=== PATIENT | male | born 1935 | race Caucasian/White ===

== ENCOUNTER 2017-03-01 10:05 | Inpatient (IN) | payer MEDICARE, OTHER ==
[~2017-03-01] VITALS: Ht 180.3 cm; Wt 100.5 kg
[~2017-03-01 10:05] MED LIST: BUME2TAB18 PO; CHOL200024 PO; CYAN10009 PO; ESCI10TA44 PO; GABA800T75 PO; LANS30CA44 PO; METO50TA5 PO; POTA-81 PO; TAMS0.4C20 PO
--- OUTSIDE RECORDS SUMMARY | 2017-03-01 10:09 | XMS REPORT | Continuity of Care Document ---
Author Author [facility] Organization [facility] Address Unknown Phone Unavailable Allergies Active Description Code Type Severity Reaction Onset Reported/Identified Relationship to Patient Clinical Status Yes No Known Medication Allergies NKMA N/A N/A 05/19/2014 Medications Problems Procedures Results Encounters ACCT No. Visit Date/Time Discharge Status Pt. Type Provider Facility Loc./Unit Complaint [id number] 11/18/2016 13:34:00 2016 23:59:00 DIS Outpatient Jayesh Gasca V [facility] New FM 6 month CRMMP [id number] 09/06/2016 14:36:00 2015 23:59:00 DIS Outpatient Jayesh Gasca V [facility] New FM 10 day follow up [id number] 08/25/2016 14:09:00 2015 23:59:00 DIS Outpatient Jayesh Gasca V [facility] New FM TCPA sov [id number] 05/17/2016 13:09:00 2015 23:59:00 DIS Outpatient Jayesh Gasca V [facility] New FM 6 month CDM HTN [id number] 05/18/2015 13:33:00 2014 23:59:00 DIS Outpatient Jayesh Gasca V [facility] New FM 6MTH RCK CRMMP [id number] 11/17/2014 13:12:00 2014 23:59:00 DIS Outpatient Jayesh Gasca V [facility] New FM 6mth f/u [id number] 09/29/2014 13:38:00 2013 23:59:00 DIS Outpatient Manjinder Sherwood [facility] New FM LFT FOOT TOENAILPOSSIBLE INFECTION [id number] 11/17/2015 12:34:00 ACT Outpatient Jayesh Gasca V [facility] New FM 6MTH CDM HTN
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
--- OUTSIDE RECORDS SUMMARY | 2017-03-01 10:10 | XMS REPORT | Continuity of Care Document ---
Author Author [facility] Organization [facility] Address Unknown Phone Unavailable Support Name Relationship Address Phone DAMON OLIVER MD Caregiver [address] [place] [address] [place] [address] Unavailable DAMON OLIVER MD Caregiver [address] [place] [address] [place] [address] Unavailable KATHARINA GASCA MD Caregiver [address] [place] [address] [place] [address] Unavailable IAM HARRIS Next Of Kin [address] [phone] Insurance Providers Guarantor Getachew Harris Address [address] [place] [address] Email [email or web address] Payer Medicare Policy Number [id number] Subscriber's Name Getachew Harris Relationship 18 Self Effective Date [facility] Policy Number [id number] Subscriber's Name Getachew Harris Relationship 18 Self Group Number [id number] Advance Directives Directive Response Recorded Date/Time Ordered Resuscitation Status Full Code 08/17/16 12:12pm Resuscitation Documents on File No 08/17/16 12:12pm DPOA for Healthcare Only No 08/17/16 12:12pm Living Will No 08/17/16 12:12pm Problems Active Problems Medical Problem Onset Date Status Dehydration Unknown Resolved GERD (gastroesophageal reflux disease) Unknown Chronic Glaucoma Unknown Chronic HTN (hypertension) Unknown Chronic Hematuria Unknown Acute History of seizure Unknown Resolved Hypokalemia Unknown Resolved Pacemaker Unknown Chronic Peripheral edema Unknown Chronic Weakness Unknown Acute Surgical Problem Onset Date Status Hx of splenectomy Unknown Resolved Past Problems Medical Problem Onset Date Dehydration Unknown Dehydration Unknown Hematuria Unknown Hypokalemia Unknown Hypokalemia Unknown Weakness Unknown Weakness Unknown Medications Current Home Medications Medication Dose Units Route Directions Days Qty Instructions Start Date Bumetanide 2 Mg Tablet 2 Mg Oral Am 08/15/16 Cholecalciferol (Vitamin D3) (Vitamin D) 2,000 Unit Tablet 2,000 Unit Oral Daily 08/15/16 Cyanocobalamin (Vitamin B-12) (Vitamin B-12) 1,000 Mcg Tablet 1,000 Mg Oral Daily 08/15/16 Escitalopram Oxalate (Lexapro) 10 Mg Tablet 10 Mg Oral Daily 10/11 Gabapentin (Neurontin) 800 Mg Tablet 800 Mg Oral Three Times A Day 11/10/12 Lansoprazole (Prevacid) 30 Mg Capsule.dr 30 Mg Oral Daily Metoprolol Tartrate 50 Mg Tablet 50 Mg Oral Daily 08/15/16 Potassium Chloride 20 Meq Tablet.er 20 Meq Oral Twice Daily With Meals 08/15/16 Tamsulosin Hcl (Flomax) 0.4 Mg Cap.sr.24h 0.4 Mg Oral Daily 11/10 Past Home Medications Medication Directions Ordered Status Bumetanide 2 Mg Tablet, 1 Mg Oral Bedtime 08/15/16 Discontinued Metolazone 5 Mg Tablet, 5 Mg Oral Every Other Day 08/15/16 Discontinued Social History Social History Problem Response Recorded Date/Time Onset Date Status Reason for Hospitalization Hypokalemia 08/19/2016 5:40pm Not Applicable Not Applicable Hx Substance Use No 08/16/2016 11:29am Not Applicable Not Applicable Hx Alcohol Use No 08/16/2016 11:29am Not Applicable Not Applicable Has the pt used tobacco in the last 12 months No 08/17/2016 12:13pm Not Applicable Not Applicable Query Response Start Date Stop Date Smoking Status Never smoker Hospital Discharge Instructions Instructions: Care Instructions: Reason for Hospitalization: Hypokalemia I was in the hospital because (patient own words): I don't have any strength Discharge Diet: Low sodium Discharge Activity: As tolerated Follow Up Appointments: [facility] on 08/23/[address] Gasca/Alex. Dx: Hypokalemia, medication use. Dr Gasca in 1 week on August 25 at 2:20pm Pending Lab / Results: No Pending Lab Patient Instructions: Elevate legs as much as possible to minimize swelling. Avoid sodium (salt) to minimize swelling. Wound/Incision Care: n/a Pain Management/Treatment: n/a Expected Signs/Symptoms: Improvement of strenght Notify Physician If: Increased weakness. Fever/chills During Business Hours:: Please call the physician's office at After Business Hours:: Please call [phone] and have the continuous yarn dyeing machine operator page the physician. Condition at time of discharge: Good Plan of Care Discharge Date 08/19/16 7:26pm Disposition 01 DISCHARGED HOME, SELF-CARE Instructions/Education Provided DI for Hypokalemia Prescriptions See Medication Section Care Plan and Goals See Discharge Instructions Section Functional Status Query Response Date Recorded Mobility Status Transfer w/assist August 19, 2016 5:40pm Assistive Devices Motorized Scooter August 19, 2016 5:40pm Activity Limitations Weakness August 19, 2016 5:40pm Feeding Ability Independent August 19, 2016 5:40pm Toileting Ability Dependent August 19, 2016 5:40pm Grooming Ability Independent August 19, 2016 5:40pm Dressing Ability Independent August 19, 2016 5:40pm Driving Ability Dependent August 19, 2016 5:40pm Housework Ability Dependent August 19, 2016 5:40pm Meal Preparation Ability Dependent August 19, 2016 5:40pm Stair Climbing Ability Dependent August 19, 2016 5:40pm Ability to complete ADL's impeded by Impaired Mobility No change August 19, 2016 5:40pm Cognitive/Perceptual Impairments Impaired vision August 19, 2016 5:40pm Visual Assistive Devices Glasses August 17, 2016 2:40pm Preferred Method of Learning Reading Listening August 17, 2016 2:40pm Allergies, Adverse Reactions, Alerts No known allergies. Immunizations Immunization Event Date Type Not Given Reason Dose Number Lot Number [employer] Operator VIS Given Influenza, high dose seasonal 08/18/16 Administered 1 [id number] [employer]i Pasteur 06/05/15 Query Response on File Recorded Date/Time Hx Influenza Vaccination Y 08/1308/17/16 12:13pm Hx Pneumococcal Vaccination Y 08/1308/17/16 12:13pm Hx Influenza Vaccination Y 08/1308/17/16 12:13pm Influenza Vaccine Hx 08/18/2016 08/18/16 11:17am Vital Signs Acute Vital Signs Vital Response Date/Time Temperature (Fahrenheit) 96.7 deg F (96.8 - 99.1) 08/19/2016 4:34pm Temperature (Calculated Celsius) 35.84374 degrees C (36.0 - 37.3) 08/19/2016 4:34pm Pulse Rate (adult) 79 bpm (60 - 100) 08/19/2016 4:34pm Respiratory Rate 16 breaths/min (10 - 20) 08/19/2016 4:34pm O2 Sat by Pulse Oximetry 93 % (90 - 100) 08/19/2016 4:34pm Oxygen Delivery Method Room Air 08/19/2016 4:34pm Blood Pressure 104/64 mm Hg 08/19/2016 4:34pm Blood Pressure Source Automatic Cuff 08/19/2016 4:34pm Height (Feet) 6 feet 08/19/2016 3:37pm Height (Inches) 0.00 inches 08/19/2016 3:37pm Weight (Kilograms) 95.800 kg 08/19/2016 8:01am Body Mass Index (BMI) 27.2 08/17/2016 11:14am Results Laboratory Results Test Name Result Units Flags Reference Collection Date/Time Result Date/ Time Comments Troponin I 0.016 ng/ml 0-0.12 08/15/2016 5:34pm 08/15/2016 6:05pm Troponin values with a difference of 55% increase from orginal troponin value represent a true biological DELTA value. (%increase Calc=Orginal Troponin value, divided by subsequent Troponin value, multiplied by 100) BK-Wwi-Z-Type Natriuretic Peptide 203 PG/ML H 0-175 08/15/2016 5:34pm 6:10pm Rule in cut points: <50 years old=450; 50-75 years old=900; >75 years old=1800; When utilizing ProBNP rule-in cut points, adjustment for impaired renal function is typically not required. White Blood Count 8.9 T/MM3 4.5-11.0 08/19/2016 4:37am 08/19/2016 5: 11am Red Blood Count 3.90 M/MM3 L 4.50-5.90 08/19/2016 4:37am 08/19/2016 5: 11am Hemoglobin 12.1 GM/DL D L 13.5-17.5 08/19/2016 4:37am 08/19/2016 5:11am Hematocrit 37.1 % D L 41-53 08/19/2016 4:37am 08/19/2016 5:11am Mean Corpuscular Volume 95.1 UM3 80-100 08/19/2016 4:37am 08/19/2016 5: 11am Mean Corpuscular Hemoglobin 31.0 UUG 26-34 08/19/2016 4:37am 2015 5:11am Mean Corpuscular Hemoglobin Concent 32.6 GM/DL 31-37 08/19/2016 4:37am 08/19/2016 5:11am RDW Standard Deviation 48.1 FL 36.9-50.2 08/19/2016 4:37am 08/19/2016 5 :11am Platelet Count 205 T/MM3 130-400 08/19/2016 4:37am 08/19/2016 5:11am Mean Platelet Volume 11.1 UM3 9.4-12.4 08/19/2016 4:37am 08/19/2016 5: 11am Neutrophils (%) (Auto) 57.2 % 33-66 08/19/2016 4:37am 08/19/2016 5: 11am Lymphocytes (%) (Auto) 27.6 % 23-45 08/19/2016 4:37am 08/19/2016 5: 11am Monocytes (%) (Auto) 11.5 % H 0-9.0 08/19/2016 4:37am 08/19/2016 5:11am Eosinophils (%) (Auto) 3.0 % 0-4 08/19/2016 4:37am 08/19/2016 5:11am Basophils (%) (Auto) 0.5 % 0-2 08/19/2016 4:37am 08/19/2016 5:11am Immature Granulocyte % (Auto) 0.2 % 0.0-0.5 08/19/2016 4:37am 2015 5:11am Absolute Neutrophils (auto) 5.1 T/MM3 1.8-7.7 08/19/2016 4:37am 2015 5:11am Absolute Lymphocytes (auto) 2.5 T/MM3 1-4.8 08/19/2016 4:37am 2015 5:11am Absolute Monocytes (auto) 1.0 T/MM3 H 0-0.8 08/19/2016 4:37am 2015 5:11am Absolute Eosinophils (auto) 0.3 T/MM3 0-0.5 08/19/2016 4:37am 2015 5:11am Absolute Basophils (auto) 0.0 T/MM3 0-0.2 08/19/2016 4:37am 08/19/2016 5:11am Absolute Immature Granulocyte (auto 0.02 T/MM3 0.00-0.03 08/19/2016 4: 37am 08/19/2016 5:11am Icterus Index < 2 0-7 08/19/2016 4:37am 08/19/2016 5:16am Chemistry Specimen Hemolysis < 15 0-25 08/19/2016 4:37am 08/19/2016 5 :16am 0-25: Specimen Exhibited No Hemolysis. Turbidity < 20 0-20 08/19/2016 4:37am 08/19/2016 5:16am Sodium Level 142 MEQ/L 134-144 08/19/2016 4:37am 08/19/2016 5:16am Potassium Level 4.0 MEQ/L D 3.6-5 08/19/2016 4:37am 08/19/2016 5:19am Chloride Level 105 MEQ/L D 98-107 08/19/2016 4:37am 08/19/2016 5:19am Carbon Dioxide Level 30 MEQ/L 22-30 08/19/2016 4:37am 08/19/2016 5: 16am Anion Gap 7 MEQ/L 5-15 08/19/2016 4:37am 08/19/2016 5:16am Blood Urea Nitrogen 24.0 MG/DL H 9-20 08/19/2016 4:37am 08/19/2016 5: 16am Creatinine 1.0 MG/DL D 0.8-1.5 08/19/2016 4:37am 08/19/2016 5:19am BUN/Creatinine Ratio 24 RATIO 6-26 08/19/2016 4:37am 08/19/2016 5:16am Glomerular Filtration Rate Calc 72 08/19/2016 4:37am 08/19/2016 5: 16am Glucose Level 109 MG/DL 75-110 08/19/2016 4:37am 08/19/2016 5:16am Calculated Osmolality 278 MOSM/KG 261-280 08/19/2016 4:37am 08/19/2016 5:16am Calcium Level 9.0 MG/DL 8.4-10.2 08/19/2016 4:37am 08/19/2016 5:16am Total Bilirubin 1.30 MG/DL 0.20-1.30 08/17/2016 12:44pm 08/17/2016 1: 15pm Alkaline Phosphatase 112 U/L 38-126 08/17/2016 12:44pm 08/17/2016 1: 15pm Total Protein 7.5 G/DL 6.3-8.2 08/17/2016 12:44pm 08/17/2016 1:15pm Albumin 3.9 G/DL 3.5-5.0 08/17/2016 12:44pm 08/17/2016 1:15pm Globulin 3.6 G/DL 2.4-3.6 08/17/2016 12:44pm 08/17/2016 1:15pm Albumin/Globulin Ratio 1.1 RATIO 1.1-2.2 08/17/2016 12:44pm 08/17/2016 1:15pm Aspartate Amino Transf (AST/SGOT) 31 U/L 17-59 08/17/2016 12:44pm 08/17 1:15pm Alanine Aminotransferase (ALT/SGPT) 27 U/L 21-72 08/17/2016 12:44pm 1:15pm Magnesium Level 2.0 MG/DL 1.6-2.3 08/19/2016 4:37am 08/19/2016 5:16am Urine Collection Type VOIDED-NOT CC-MIDSTR 08/17/2016 1:28pm 2015 1:40pm Urine Color YELLOW YELLOW 08/17/2016 1:28pm 08/17/2016 1:40pm Urine Turbidity CLEAR CLEAR 08/17/2016 1:28pm 08/17/2016 1:40pm Urine Specific [place] 1.010 L 1.015-1.025 08/17/2016 1:28pm 2015 1:40pm Urine pH 6.0 5.0-8.0 08/17/2016 1:28pm 08/17/2016 1:40pm Urine Leukocyte Esterase NEGATIVE NEGATIVE 08/17/2016 1:28pm 2015 1:40pm Urine Nitrite NEGATIVE NEGATIVE 08/17/2016 1:28pm 08/17/2016 1:40pm Urine Protein NEGATIVE NEGATIVE 08/17/2016 1:28pm 08/17/2016 1:40pm Urine Glucose (UA) NEGATIVE NEGATIVE 08/17/2016 1:28pm 08/17/2016 1: 40pm Urine Ketones NEGATIVE NEGATIVE 08/17/2016 1:28pm 08/17/2016 1:40pm Urine Urobilinogen 0.2 EU/DL NORMAL 08/17/2016 1:28pm 08/17/2016 1: 40pm Urine Bilirubin NEGATIVE NEGATIVE 08/17/2016 1:28pm 08/17/2016 1: 40pm Urine Blood 3+ A NEGATIVE 08/17/2016 1:28pm 08/17/2016 1:40pm Urine WBC 0-1 /HPF 0-5 08/17/2016 1:28pm 08/17/2016 1:53pm Urine RBC 20-30 /HPF H 0-3 08/17/2016 1:28pm 08/17/2016 1:53pm Urine Squamous Epithelial Cells 0-5 08/17/2016 1:28pm 08/17/2016 1: 53pm Urine Bacteria 1+ H NEGATIVE 08/17/2016 1:28pm 08/17/2016 1:53pm Urine Hyaline Casts 1-3 /LPF 08/17/2016 1:28pm 08/17/2016 1:53pm Urine Culture Indicated CULT NOT INDICATED 08/17/2016 1:28pm 2015 1:53pm Procedures Procedure Status Date Provider(s) PLACE NEEDLE IN VEIN Completed 08/15/16 CHEST X-RAY 1 VIEW FRONTAL Completed 08/15/16 COMPREHEN METABOLIC PANEL Completed 08/15/16 URINALYSIS AUTO W/SCOPE Completed 08/15/16 ASSAY OF MAGNESIUM Completed 08/15/16 ASSAY OF NATRIURETIC PEPTIDE Completed 08/15/16 ASSAY OF TROPONIN QUANT Completed 08/15/16 COMPLETE CBC W/AUTO DIFF WBC Completed 08/15/16 ELECTROCARDIOGRAM TRACING Completed 08/15/16 THER/PROPH/DIAG IV INF INIT Completed 08/15/16 EMERGENCY DEPT VISIT Completed 08/15/16 [id number] ITEM OR SERVICE Completed 08/15/16 [id number] ITEM OR SERVICE Completed 08/15/16 [id number]"INJECTION, POTASSIUM CHLORIDE, PER 2 MEQ" Completed 08/15/16 [id number]"INFUSION, NORMAL SALINE SOLUTION , 1000 CC" Completed 08/15/16 [id number]"INFUSION, NORMAL SALINE SOLUTION , 250 CC" Completed 08/15/16 COMPREHEN METABOLIC PANEL Completed 08/16/16 ASSAY OF MAGNESIUM Completed 08/16/16 COMPLETE CBC W/AUTO DIFF WBC Completed 08/16/16 HYDRATION IV INFUSION INIT Completed 08/16/16 EMERGENCY DEPT VISIT Completed 08/16/16 [id number]"INFUSION, NORMAL SALINE SOLUTION , 1000 CC" Completed 08/16/16 Encounters Encounter Location Arrival/Admit Date Discharge/Depart Date Attending Provider Discharged Inpatient [facility] 08/17/16 3:37pm 08/19/16 7:26pm DAMON OLIVER MD Departed Emergency Room [facility] 08/16/16 10:45am 08/16/16 2: 42pm LEXA OLIVERA MD Departed Emergency Room [facility] 08/15/16 5:05pm 08/15/16 8: 55pm LAURA BEDOYA DO
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
--- NOTE | 2017-03-01 10:32 | NUR ---
LAB LAB AT BEDSIDE FOR BLOOD DRAW
--- NOTE | 2017-03-01 10:37 | NUR ---
PROVIDER DR OLIVERA AT BEDSIDE FOR H&P
--- OUTSIDE RECORDS SUMMARY | 2017-03-01 10:38 | XMS REPORT | Continuity of Care Document ---
Author Author [facility] Organization [facility] Address Unknown Phone Unavailable Allergies Active Description Code Type Severity Reaction Onset Reported/Identified Relationship to Patient Clinical Status Yes No Known Medication Allergies NKMA N/A N/A 05/19/2014 Medications Problems Procedures Results Encounters ACCT No. Visit Date/Time Discharge Status Pt. Type Provider Facility Loc./Unit Complaint [id number] 11/18/2016 13:34:00 2016 23:59:00 DIS Outpatient Jyaesh Gasca V [facility] 6 month CRMMP [id number] 09/06/2016 14:36:00 2015 23:59:00 DIS Outpatient Jayesh Gasca V [facility] 10 day follow up [id number] 08/25/2016 14:09:00 2015 23:59:00 DIS Outpatient Jayesh Gasca V [facility] TCPA sov [id number] 05/17/2016 13:09:00 2015 23:59:00 DIS Outpatient Jayesh Gasca V [facility] 6 month CDM HTN [id number] 05/18/2015 13:33:00 2014 23:59:00 DIS Outpatient Jayesh Gasca V [facility] 6MTH RCK CRMMP [id number] 11/17/2014 13:12:00 2014 23:59:00 DIS Outpatient Jayesh Gasca V [facility] 6mth f/u [id number] 09/29/2014 13:38:00 2013 23:59:00 DIS Outpatient Manjinder Sherwood [facility] LFT FOOT TOENAILPOSSIBLE INFECTION [id number] 11/17/2015 12:34:00 ACT Outpatient Jayesh Gasca V [facility] 6MTH CDM HTN
[2017-03-01] MEDS ORDERED: POTA-81 PO (10:44)
[2017-03-01] MEDS ORDERED: BUME2TAB18 PO (10:44)
[2017-03-01] MEDS ORDERED: CEFEPIME 1 G in NORMAL SALINE 100 ML IV ONE (10:45)
[2017-03-01 10:51] LABS: HCT - HEMATOCRIT 38.4 % (41-53); HGB - HEMOGLOBIN 12.7 GM/DL (13.5-17.5); MEAN CORPUSCULAR HGB 32.2 UUG (26-34); MEAN CORPUSCULAR HGB CONC(MCHC 33.1 GM/DL (31-37); MEAN CORPUSCULAR VOLUME 97.5 UM3 (80-100); MEAN PLATELET VOLUME 10.8 UM3 (9.4-12.4); RED BLOOD COUNT 3.94 M/MM3 (4.50-5.90); WBC - WHITE BLOOD COUNT 22.9 T/MM3 (4.5-11.0)
[2017-03-01 10:59] LABS: LACTATE - LACTIC ACID 1.7 MMOL/L (0.6-2.2)
[2017-03-01] MEDS ORDERED: NORMAL SALINE 1,000 ML IV ONE (11:00)
[2017-03-01 11:01] LABS: ALBUMIN 3.3 G/DL (3.5-5.0); ALBUMIN/GLOBULIN RATIO 1.1 RATIO (1.1-2.2); ALKALINE PHOSPHATASE 93 U/L (38-126); ALT (SGPT) 43 U/L (21-72); ANION GAP 11 MEQ/L (5-15); AST (SGOT) 33 U/L (17-59); BUN/CREATININE RATIO 17 RATIO (6-26); CALCIUM 8.9 MG/DL (8.4-10.2); CHLORIDE 102 MEQ/L (98-107); CO2 - CARBON DIOXIDE 28 MEQ/L (22-30); CREATININE 1.2 MG/DL (0.8-1.5); GLOMERULAR FILTRATION RATE 58; GLUCOSE 170 MG/DL (75-110); MAGNESIUM 1.9 MG/DL (1.6-2.3); POTASSIUM 3.6 MEQ/L (3.6-5); SODIUM 141 MEQ/L (134-144); TOTAL PROTEIN 6.4 G/DL (6.3-8.2)
--- NOTE | 2017-03-01 11:03 | NUR ---
XRAY RADIOLOGY AT BEDSIDE FOR PORTABLE CXR.
[2017-03-01 11:10] LABS: BAND NEUTROPHILS # 0.5 T/MM3; LYMPHOCYTES # (MANUAL) 0.5 T/MM3 (1-4.8); MONOCYTES # (MANUAL) 0.5 T/MM3 (0-0.8); NEUTROPHILS #(MANUAL)-ABSOLUTE 21.5 T/MM3 (1.8-7.7); TOTAL CELLS COUNTED 100 %
[2017-03-01 11:11] LABS: ACANTHOCYTES 1+; POIKILOCYTOSIS 1+
--- NOTE | 2017-03-01 11:28 | NUR ---
UPDATE PATIENT LYING IN BED RESTING. URINAL PROVIDED TO COLLECT URINE SAMPLE.
--- NOTE | 2017-03-01 11:35 | DI ---
Indication: ITS.REASON: general weakness, cardiac/sepsis eval PROCEDURE: CHEST 1 VIEW: Encounter: Initial Comparison: August 15, 2016 Findings: The lungs are stable in appearance without new focal airspace consolidation. There is no pleural effusion or pneumothorax. The heart size, pulmonary vascularity and mediastinal contours are unchanged. Left pacemaker. IMPRESSION: Stable appearance of the chest without acute cardiopulmonary disease. .
[2017-03-01 11:45] LABS: BLOOD, URINE 2+ (NEGATIVE); COLOR,URINE AMBER (YELLOW); LEUKOCYTE ESTERASE ,URINE NEGATIVE (NEGATIVE); NITRITE,URINE NEGATIVE (NEGATIVE)
[2017-03-01 11:54] LABS: BACTERIA,URINE 2+ (NEGATIVE); MUCUS,URINE PRESENT; SQUAMOUS EPITHELIAL CELL,UR 0-5
--- NOTE | 2017-03-01 12:12 | NUR ---
REPORT REPORT GIVEN TO TRINI ALLAN ON MEDICAL UNIT.
--- OUTSIDE RECORDS SUMMARY | 2017-03-01 12:16 | XMS REPORT | Continuity of Care Document ---
Author Author [facility] Organization [facility] Address Unknown Phone Unavailable Allergies Active Description Code Type Severity Reaction Onset Reported/Identified Relationship to Patient Clinical Status Yes No Known Medication Allergies NKMA N/A N/A 05/19/2014 Medications Problems Procedures Results Encounters ACCT No. Visit Date/Time Discharge Status Pt. Type Provider Facility Loc./Unit Complaint [id number] 11/18/2016 13:34:00 2016 23:59:00 DIS Outpatient Jayesh Gasca V [facility] New FM 6 month CRMMP [id number] 09/06/2016 14:36:00 2015 23:59:00 DIS Outpatient Jayesh Gasca V [facility] 10 day follow up [id number] 08/25/2016 14:09:00 2015 23:59:00 DIS Outpatient Jayesh Gasca V [facility] New FM TCPA sov [id number] 05/17/2016 13:09:00 2015 23:59:00 DIS Outpatient Jayesh Gasca V [facility] New FM 6 month CDM HTN [id number] 05/18/2015 13:33:00 2014 23:59:00 DIS Outpatient Jayesh Gasca V [facility] New FM 6MTH RCK CRMMP [id number] 11/17/2014 13:12:00 2014 23:59:00 DIS Outpatient Jayesh Gasca V [facility] FM 6mth f/u [id number] 09/29/2014 13:38:00 2013 23:59:00 DIS Outpatient Manjinder Sherwood [facility] LFT FOOT TOENAILPOSSIBLE INFECTION [id number] 11/17/2015 12:34:00 ACT Outpatient Jayesh Gasca V [facility] 6MTH CDM HTN
--- NOTE | 2017-03-01 12:20 | NUR ---
Admission to medical unit. Patient arrived via cart from ER. VSS. RA. Reporting pain 3/10 in left leg. present. A&O x 3.
--- NOTE | 2017-03-01 12:20 | NUR ---
ADMIT PATIENT TAKEN TO ROOM 137 BY CART, STABLE. BELONGINGS WITH PATIENT. ACCOMPANIED BY .
[2017-03-01 12:26] VITALS: Ht 180.3 cm; Wt 100.5 kg
[2017-03-01 12:34] VITALS: BP 126/66; PULSE 85; RESP 18; TEMP 98.2; O2SAT 93
[2017-03-01 12:38] VITALS: PULSE 85; RESP 18
[2017-03-01] MEDS ORDERED: LATA2.5D7 BOTH EYES (12:52)
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
[2017-03-01] MEDS: NS KCL 20 MEQ 1,000 ML IV SCH (13:14)
[2017-03-01 13:20] VITALS: PULSE 85; RESP 18; O2SAT 93
[2017-03-01] MEDS: ERTAPENEM 1 G in NORMAL SALINE 100 ML IV SCH (13:25)
[2017-03-01] MEDS: HYDROCODONE/APAP 5 mg/325 mg TABLET PO PRN ×2 (13:34→20:14)
[2017-03-01] MEDS: GABAPENTIN 800 MG TABLET PO SCH ×2 (15:08→20:14)
[2017-03-01 15:11] VITALS: BP 105/58; PULSE 87; RESP 18; TEMP 98.1; O2SAT 93
--- NOTE | 2017-03-01 18:27 | NUR ---
Shift summary. VSS. RA. at bedside. Patient cooperative, good sense of humor and likes to joke around. Left forearm IV with NS 0.9% KCl 20 MEQ running at 75 mL/hr, complete after this bag. A&O x 3, although does ramble on in speech at times. Patient nonambulatory at this time. Transferred patient to chair for meal with gait belt and assistance x 2, and patient needed total assist. Patient stated hasn't walked since 2007, and reports patient 'can't walk,' just pivots and transfers. Uses urinal at bedside. Patient stated hasn't had BM for several days. Hx of CHF. Has pacemaker. Given one dose of [place] for pain.
--- NOTE | 2017-03-01 18:56 | NUR ---
Charting reviewed This RN reviewed student Monet Grijalva's charting for 03/01.
[2017-03-01 20:06] VITALS: PULSE 82; RESP 18
[2017-03-01 22:19] VITALS: O2SAT 95
[2017-03-02 00:02] VITALS: BP 114/65; PULSE 86; RESP 18; TEMP 97.8; O2SAT 94
[2017-03-02 01:00] VITALS: O2SAT 92
[2017-03-02] MEDS: HYDROCODONE/APAP 5 mg/325 mg TABLET PO PRN ×2 (02:05→08:44)
[2017-03-02] MEDS: NS KCL 20 MEQ 1,000 ML IV SCH ×2 (02:20→14:50)
[2017-03-02 03:00] VITALS: O2SAT 90
[2017-03-02 05:14] LABS: HCT - HEMATOCRIT 35.1 % (41-53); HGB - HEMOGLOBIN 11.5 GM/DL (13.5-17.5); MEAN CORPUSCULAR HGB CONC(MCHC 32.8 GM/DL (31-37); MEAN CORPUSCULAR VOLUME 97.8 UM3 (80-100); MEAN PLATELET VOLUME 11.6 UM3 (9.4-12.4); RED BLOOD COUNT 3.59 M/MM3 (4.50-5.90); WBC - WHITE BLOOD COUNT 17.5 T/MM3 (4.5-11.0)
[2017-03-02 05:20] LABS: ANION GAP 8 MEQ/L (5-15); BUN/CREATININE RATIO 18 RATIO (6-26); CALCIUM 8.8 MG/DL (8.4-10.2); CHLORIDE 107 MEQ/L (98-107); CO2 - CARBON DIOXIDE 27 MEQ/L (22-30); GLOMERULAR FILTRATION RATE 72; GLUCOSE 95 MG/DL (75-110); POTASSIUM 3.8 MEQ/L (3.6-5); SODIUM 142 MEQ/L (134-144)
--- NOTE | 2017-03-02 05:33 | NUR ---
Status Pt A/O x3, norco x2 tonight for pain in L LE, three person assist to bed from chair, pt has shuffling gait and weakness. BS hypoactive, states last BM 3-4 days ago. IV to L FA, locked after 1L IVF completed. L LE cellulitis, B LE 1+ edema. Slept off and on, uses call light for assistance.
[2017-03-02 06:49] LABS: LYMPHOCYTES # (MANUAL) 1.8 T/MM3 (1-4.8); MONOCYTES # (MANUAL) 2.1 T/MM3 (0-0.8); NEUTROPHILS #(MANUAL)-ABSOLUTE 13.7 T/MM3 (1.8-7.7); TOTAL CELLS COUNTED 100 %
[2017-03-02 08:00] VITALS: BP 126/67; PULSE 73; RESP 18; TEMP 97.8; O2SAT 98
[2017-03-02] MEDS: GABAPENTIN 800 MG TABLET PO SCH ×3 (08:44→20:53)
[2017-03-02] MEDS: ESCITALOPRAM 10 MG TABLET PO SCH (08:44)
[2017-03-02] MEDS: ENOXAPARIN 40 MG/0.4 ML INJECTION SQ SCH (08:45)
[2017-03-02] MEDS: ERTAPENEM 1 G in NORMAL SALINE 100 ML IV SCH (08:46)
[2017-03-02] MEDS ORDERED: ERTAPENEM 1 G in NORMAL SALINE 100 ML IV SCH (09:00)
--- NOTE | 2017-03-02 09:20 | PNPDOC ---
Subjective Date DATE: 03/02/17 TIME: 09:19 Subjective Patient without complaints. No events overnight. States leg feels much better. States he doesn't feel as tired. Objective Vital Signs Vital signs Vital Signs Date Time Temp Pulse Resp B/P Pulse Ox O2 Delivery O2 Flow Rate FiO2 03/02/17 03:00 85 16 90 Room Air 03/02/17 00:02 97.8 114/65 Height (Feet): 5 Height (Inches): 11.00 Weight (Kilograms): 95.800 General Comments General--he is awake, alert, oriented 3, in no acute distress. HEENT--PERRLA; EOMI Neck.--Supple, no JVD, no bruits. Cardiovascular--regular rate and rhythm. Lungs--clear to auscultation bilaterally Abdomen--benign. Extremities--no edema, cyanosis or clubbing. Neurological--cranial nerves II through XII grossly intact Rectal--deferred. Genitourinary--deferred. Skin--there is an area of erythema and ecchymosis on the left lower extremity from his mid tilley to his ankle on the lateral aspect much improved from admission Laboratory Laboratory Laboratory Tests 03/01/17 10:37 03/02/17 04:38 Laboratory Tests 03/01/17 10:37 03/02/17 04:38 Microbiology Microbiology Microbiology Date/Time Source Procedure Growth Status 03/01/17 10:43 Peripheral/Iv Start Blood Culture - Preliminary CULTURE INITIATED - RESULTS PENDING Resulted 03/01/17 10:43 Peripheral/Iv Start Blood Culture - Preliminary CULTURE INITIATED - RESULTS PENDING Resulted Assessment & Plan Assessment #1. Left lower from the cellulitis does--continue Invanz. Cultures have been sent. White blood cell count trending down. #2. Asthenia.--Secondary to the cellulitis. Improving. #3. Hypertension.--We will continue the patient's outpatient medications. #4. BPH.--We will continue his Flomax. #5. Peripheral neuropathy.--We will continue his gabapentin. Code Status Do Not Resuscitate Hospital Course Summary Disclaimer The hospital course summary below is not to be considered part of the above Progress Note. HAZEL VORA MD March 02, 2017 09:20
--- NOTE | 2017-03-02 10:09 | NUR ---
BUD FARRELL VISITED PT. CM EXPLAINED ROLE AND PROVIDED CONTACT INFORMATION. PT PLANS TO RETURN HOME POST STAY AT [facility]. PT IS CONSIDERING HOME HEALTH STATES HE HAS USED THEM IN THE PAST. PT PLANS TO TALK WITH SPOUSE WHEN SHE COMES IN TODAY. PT WILL CONTACT CM IF NEEDS ARISE.
[2017-03-02 15:22] VITALS: BP 121/68; PULSE 72; RESP 18; TEMP 97.8; O2SAT 95
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
[2017-03-02] MEDS ORDERED: TAMSULOSIN 0.4 MG CAPSULE PO SCH (22:00)
[2017-03-02] MEDS ORDERED: LATANOPROST 0.005% EYE DROPS 2.5 ML BOTTLE BOTH EYES SCH (22:00)
[2017-03-02 22:25] VITALS: PULSE 74
[2017-03-03 00:10] VITALS: BP 121/68; PULSE 72; RESP 18; TEMP 98.6
[2017-03-03] MEDS: NS KCL 20 MEQ 1,000 ML IV SCH (05:09)
[2017-03-03 05:31] LABS: MEAN CORPUSCULAR HGB 31.9 UUG (26-34); MEAN CORPUSCULAR HGB CONC(MCHC 32.4 GM/DL (31-37); MEAN CORPUSCULAR VOLUME 98.4 UM3 (80-100); MEAN PLATELET VOLUME 12.1 UM3 (9.4-12.4); RED BLOOD COUNT 3.76 M/MM3 (4.50-5.90); WBC - WHITE BLOOD COUNT 9.1 T/MM3 (4.5-11.0)
[2017-03-03 05:41] LABS: ANION GAP 9 MEQ/L (5-15); BUN/CREATININE RATIO 19 RATIO (6-26); CHLORIDE 109 MEQ/L (98-107); CO2 - CARBON DIOXIDE 26 MEQ/L (22-30); CREATININE 0.9 MG/DL (0.8-1.5); GLOMERULAR FILTRATION RATE 81; GLUCOSE 104 MG/DL (75-110); MAGNESIUM 2.1 MG/DL (1.6-2.3); POTASSIUM 4.6 MEQ/L (3.6-5); SODIUM 144 MEQ/L (134-144)
--- NOTE | 2017-03-03 06:15 | NUR ---
SUMMARY PT SLEPT WELL THIS SHIFT. PT IS ALERT AND ORIENTED. VOICED PAIN 2-3/10 ON HIS LOWER EXTREMITIES. HE SAID HE CAN TOLERATE IT WITH NO PAIN MEDICATION. PT USES THE URINAL. WAS SITTING ON THE RECLINER AT THE BEGINNING OF THE SHIFT. ASSIST X 2 WITH SIT TO STAND LIFT. PT EDUCATED ON USE OF CALL LIGHT AND PT SAFETY. CONTINUES ON IV FLUIDS THAT HE TOLERATES WELL.
[2017-03-03 06:25] LABS: ANISOCYTOSIS 1+; BAND NEUTROPHILS # 0.2 T/MM3; EOSINOPHILS # (MANUAL) 0.5 T/MM3 (0-0.5); LYMPHOCYTES # (MANUAL) 2.2 T/MM3 (1-4.8); MONOCYTES # (MANUAL) 0.9 T/MM3 (0-0.8); NEUTROPHILS #(MANUAL)-ABSOLUTE 5.4 T/MM3 (1.8-7.7); POIKILOCYTOSIS 1+; TOTAL CELLS COUNTED 100 %
[2017-03-03] MEDS ORDERED: PANTOPRAZOLE 40 MG TABLET PO SCH (06:30)
[2017-03-03 08:30] VITALS: BP 138/88; PULSE 72; RESP 16; TEMP 97.6; O2SAT 94
[2017-03-03] MEDS ORDERED: CEFU500T68 PO (09:31)
--- NOTE | 2017-03-03 09:36 | DSPDOC ---
General Date Date DATE: 03/03/17 TIME: 09:34 Attending Physician Hazel Sierra MD Admitting Physician Hazel Sierra MD Consulting Physician Admitting Diagnosis left lower extremity cellulitis Discharge Diagnosis Left lower extremity cellulitis Laboratory Laboratory Tests Test 03/02/17 04:38 03/03/17 04:50 White Blood Count 17.5T/MM3 (4.5-11.0) 9.1T/MM3 (4.5-11.0) Red Blood Count 3.59M/MM3 (4.50-5.90) 3.76M/MM3 (4.50-5.90) Hemoglobin 11.5GM/DL (13.5-17.5) 12.0GM/DL (13.5-17.5) Hematocrit 35.1% (41-53) 37.0% (41-53) Mean Corpuscular Volume 97.8UM3 (80-100) 98.4UM3 (80-100) Mean Corpuscular Hemoglobin 32.0UUG (26-34) 31.9UUG (26-34) Mean Corpuscular Hemoglobin Concent 32.8GM/DL (31-37) 32.4GM/DL (31-37) RDW Standard Deviation 50.2FL (36.9-50.2) 51.1FL (36.9-50.2) Platelet Count 173T/MM3 (130-400) 125T/MM3 (130-400) Mean Platelet Volume 11.6UM3 (9.4-12.4) 12.1UM3 (9.4-12.4) Neutrophils % (Manual) 78.0% (33-66) 59.0% (33-66) Lymphocytes % (Manual) 10.0% (23-45) 24.0% (23-45) Monocytes % (Manual) 12.0% (0-9.0) 10.0% (0-9.0) Absolute Neutrophils (Manual) 13.7T/MM3 (1.8-7.7) 5.4T/MM3 (1.8-7.7) Lymphocytes # (Manual) 1.8T/MM3 (1-4.8) 2.2T/MM3 (1-4.8) Monocytes # (Manual) 2.1T/MM3 (0-0.8) 0.9T/MM3 (0-0.8) Red Cell Morphology Comment Normal Abnormal Turbidity < 20 (0-20) < 20 (0-20) Sodium Level 142MEQ/L (134-144) 144MEQ/L (134-144) Potassium Level 3.8MEQ/L (3.6-5) 4.6MEQ/L (3.6-5) Chloride Level 107MEQ/L (98-107) 109MEQ/L (98-107) Carbon Dioxide Level 27MEQ/L (22-30) 26MEQ/L (22-30) Anion Gap 8MEQ/L (5-15) 9MEQ/L (5-15) Blood Urea Nitrogen 18.0MG/DL (9-20) 17.0MG/DL (9-20) Creatinine 1.0MG/DL (0.8-1.5) 0.9MG/DL (0.8-1.5) Glomerular Filtration Rate Calc 72 81 BUN/Creatinine Ratio 18RATIO (6-26) 19RATIO (6-26) Glucose Level 95MG/DL (75-110) 104MG/DL (75-110) Calculated Osmolality 275MOSM/KG (261-280) 279MOSM/KG (261-280) Calcium Level 8.8MG/DL (8.4-10.2) 9.0MG/DL (8.4-10.2) Magnesium Level 2.0MG/DL (1.6-2.3) 2.1MG/DL (1.6-2.3) Icterus Index < 2 (0-7) < 2 (0-7) Chemistry Specimen Hemolysis < 15 (0-25) 44 (0-25) Band Neutrophils % 2.0% (0-6) Eosinophils % (Manual) 5.0% (0-4) Band Neutrophils # 0.2T/MM3 Eosinophils # (Manual) 0.5T/MM3 (0-0.5) Poikilocytosis 1+ Anisocytosis 1+ Microbiology Microbiology Date/Time Source Procedure Growth Status 03/01/17 10:43 Peripheral/Iv Start Blood Culture - Preliminary NO GROWTH AFTER 24 HOURS Resulted 03/01/17 10:43 Peripheral/Iv Start Blood Culture - Preliminary NO GROWTH AFTER 24 HOURS Resulted History of Present Illness This is a 70-year-old male who presents with worsening weakness for the past 24-36 hours. States he just hasn't been feeling himself. states that she has noticed that there has been a area of redness on his left leg that is new. Patient states he gets this from time to time especially after using his power chair and occasionally having to we'll rub against his leg. States this is been happening with increased frequency. He denies any other trauma to the leg. He denies any fever, chills or nodules. He denies any chest pain, shortness of breath, nausea, vomiting or diaphoresis. He denies any abdominal pain, diarrhea, constipation, blood in stools or dark tarry stools. Denies any dysuria or hematuria. Patient states his been taken his medications as prescribed. Does admit to not eating and drinking very much for the past 2 days. Hospital Course Patient was admitted to the medical floor and received IV Invanz during his hospitalization. His cellulitis has nearly resolved. His white count is normalized. He has been afebrile. His weakness is resolved. He is being discharged on 5 more days of antibiotics. Problems: Code Status Do Not Resuscitate Home Meds Active Scripts Cefuroxime Axetil (Cefuroxime) 500 Mg Tablet, 500 MG PO BID for 5 Days, #10 TAB- CAP Prov:HAZEL SIERRA MD 03/03/17 Reported Medications Latanoprost (Latanoprost) 2.5 Ml Drops, 1 DROP BOTH EYES HS, BOTTLE 03/01/17 Potassium Chloride (Potassium Chloride) 20 Meq Tablet.er, 20 MEQ PO QOD, TAB Take 1 tablet, by mouth, two times a day with meals. 03/01/17 Bumetanide (Bumetanide) 2 Mg Tablet, 1 TAB PO QOD, #60 TAB 5 Refills 03/01/17 Cyanocobalamin (Vitamin B-12) (Vitamin B-12) 1,000 Mcg Tablet, 1000 MG PO DAILY 08/15/16 Metoprolol Tartrate (Metoprolol Tartrate) 50 Mg Tablet, 50 MG PO DAILY 08/15/16 Cholecalciferol (Vitamin D3) (Vitamin D) 2,000 Unit Tablet, 2000 UNIT PO DAILY 08/15/16 Escitalopram Oxalate (Lexapro) 10 Mg Tablet, 10 MG PO DAILY 11/10/12 Gabapentin (Neurontin) 800 Mg Tablet, 800 MG PO TID 11/10/12 Tamsulosin Hcl (Flomax) 0.4 Mg Cap.sr.24h, 0.4 MG PO DAILY 11/10/12 Lansoprazole (Prevacid) 30 Mg Capsule.dr, 30 MG PO DAILY 11/10/12 Discontinued Reported Medications Potassium Chloride (Potassium Chloride) 20 Meq Tablet.er, 20 MEQ PO BIDWM 08/15/16 Bumetanide (Bumetanide) 2 Mg Tablet, 2 MG PO AM 08/15/16 Face to Face Encounter I met with patient on the day of dismissal and discussed follow up appointments , medications, and safety plan. Discharge Disposition Home HAZEL SIERRA MD March 03, 2017 09:36
[2017-03-03] MEDS: HYDROCODONE/APAP 5 mg/325 mg TABLET PO PRN (09:39)
[2017-03-03] MEDS: ERTAPENEM 1 G in NORMAL SALINE 100 ML IV SCH (09:39)
[2017-03-03] MEDS: ESCITALOPRAM 10 MG TABLET PO SCH (09:39)
[2017-03-03] MEDS: GABAPENTIN 800 MG TABLET PO SCH ×2 (09:40→14:58)
[2017-03-03] MEDS: ENOXAPARIN 40 MG/0.4 ML INJECTION SQ SCH (09:40)
--- NOTE | 2017-03-03 09:51 | NUR ---
CM CM VISITED PT. PT IS D/C HOME TODAY. PT HAS DECLINED HOME HEALTH SERVICES. PT IS AWARE TO CONTACT CM IF NEEDS ARISE.
--- NOTE | 2017-03-03 15:25 | NUR ---
BUD CM VISITED WITH PT/SPOUSE REGARDING D/C OPTIONS. FAMILY IS WELL VERSED AND HAVE HX OF GOING TO [facility] FOR [facility]APY. PT/SPOUSE HAVE DECIDED TO USE [facility]. CM SPOKE WITH ELSA AT [facility] AND THEY HAVE AGREED TO ACCEPT TO POST D/C FROM [facility] TODAY. PT WILL NEED A SLIDE BOARD AT HOME FOR TRANSFERS PER PT. PT HAS A HOME SLIDE BOARD PER PT/SPOUSE. PT/SPOUSE AWARE TO CONTACT CM IF NEEDS ARISE
[2017-03-03 15:35] VITALS: BP 115/74; PULSE 73; RESP 18; TEMP 97.9; O2SAT 95
--- NOTE | 2017-03-03 18:35 | NUR ---
Discharge Patient discharged to home. here to transfer. Patient extremely hard to transfer, states multiple times they have help at home. IV dc'c, cath intact. and patient understand orders.
== END 2017-03-03 18:30 | disposition home health service (06) | DRG 603 ==
LOC: ED 10:05 → EDHOLD 12:01 → MED 12:20
PROVIDERS: ADMIT Internal Medicine; ATTEND Internal Medicine
DX: L03.116 Cellulitis of left lower limb (principal); G62.9 Polyneuropathy, unspecified; R53.1 Weakness; I10 Essential (primary) hypertension; K21.9 Gastro-esophageal reflux disease without esophagitis; H40.9 Unspecified glaucoma; N40.0 Benign prostatic hyperplasia without lower urinary tract symptoms; Z66 Do not resuscitate
CPT/HCPCS: 36415; 80048; 80053; 81001; 83605; 83735; 84145; 84484; 85007; 85025; 85027; 87040; 93005; 94762; 96361; 96365

== ENCOUNTER 2017-05-10 16:58 | Inpatient (IN) ==
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
[2017-05-10] MEDS ORDERED: DiphenhydrAMINE 25 MG CAPSULE PO ONE (19:46)
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
[2017-05-11] MEDS ORDERED: ONDANSETRON 4 MG/2 ML INJECTION IVP PRN (00:45)
[2017-05-11] MEDS ORDERED: SENNA + DOCUSATE TABLET PO PRN (00:45)
[2017-05-11] MEDS ORDERED: BACLOFEN 10 MG TABLET PO SCH (01:00)
[2017-05-11] MEDS: MORPHINE SULFATE 4 MG SYRINGE IVP PRN ×2 (01:07→03:38)
[2017-05-11] MEDS: FUROSEMIDE 40 MG TABLET PO SCH (01:49)
[2017-05-11] MEDS ORDERED: CYANOCOBALAMIN (B-12) 500mcg TABLET PO SCH (09:00)
[2017-05-11] MEDS: LANSOPRAZOLE SOLU-TAB 15 MG TABLET PO SCH (09:07)
[2017-05-11] MEDS: GABAPENTIN 800 MG TABLET PO SCH ×3 (09:07→22:04)
[2017-05-11] MEDS: ESCITALOPRAM 10 MG TABLET PO SCH (09:08)
--- NOTE | 2017-05-11 14:12 | Progress Note ---
Subjective: Patient states that mentally he is much more clear today. He states that his feet are worse today. They state that it has not been draining at home like it is here. Patient family also states that the wound on his back is also looking worse. Objective Vital signs: Temperature 97.4 F 05/11/17 07:22 Pulse Rate 80 05/11/17 07:22 Respiratory Rate 17 05/11/17 07:22 Blood Pressure 114/62 05/11/17 07:22 Pulse Oximetry 90 05/11/17 07:22 Oxygen Delivery Method Room Air Gen.-awake alert oriented 3 in no acute distress CV-regular rate and rhythm Lungs-clear to auscultation bilaterally Abdomen-benign Extremities-2+ edema bilaterally right greater than left Skin-bilateral feet in dressings. Nurse relates significant drainage from wound on the right foot. Also noted significant wound on the sacrum. Weight: 98.5 kg Results - Labs CBC & Chem 7: 05/11/17 04:30 Microbiology Results: Microbiology 05/11/17 02:17 Ankle, Right Gram Stain - Final 05/11/17 02:17 Ankle, Right Deep Wound Culture - Preliminary Culture Initiated - Results Pending 05/11/17 02:50 Foot,Left Gram Stain - Final 05/11/17 02:50 Foot,Left Deep Wound Culture - Preliminary Culture Initiated - Results Pending Assessment and Plan (1) Syncope Current visit: Yes Status: Resolved 05/10/17 23:05 has pacemaker, needs to be interrogated (if not already). Monitor on tele, 05/11/17 01:25 (2) Somnolence Current visit: Yes Status: Resolved 05/10/17 23:04 patient received 50 mg benadryl which appears to have cause expected side effect of sedation and some confusion with waking. Does not appear to be an otherwise pathological event (stroke etc) but if does not wake from this in AM back to usual state, would warrant consideration of further workup. (3) Bilateral lower leg cellulitis Current visit: Yes Status: Acute 05/11/17 01:26 PO clinda ordered may be fine, no fever and WBC not terribly high. Will order IV vanco, ask pharmacy to continue dosing. PO clinda would likely be fine if deemed stable for dc in AM Wound nurse eval and keep referral to wound care clinic (4) Edema of right lower leg due to venous stasis Current visit: Yes Status: Acute will keep oral diuretics on board, likely needs better local/edema care with compression therapy 05/11/17 01:29 (5) Degenerative lumbar spinal stenosis Current visit: Yes Status: Acute (6) Muscle spasticity Current visit: Yes Status: Acute I wonder if cellulitis maybe worsening spasticity in legs. Baclofen or other anti-spasmodic probably indicated for sx. baclofen x 1 tonight (perhaps decide on 5 mg TID and titrate up as tolerated and 1 dose IV ativan tonight. I expect him to have sedating side effects given the reaction to benadryl earlier this peri, but with pain associated and ongoing spasticity issues and discomfort, I think warrants it at this time. 05/11/17 01:29 (7) Sick sinus syndrome Current visit: Yes Status: Resolved not sure if this is precise dx, but will interrogate pacer in AM 05/11/17 01:32 Assessment and Plan: # Bilateral foot cellulitis - failed OP therapy. Continue IV abx. Obtain xrays to eval for osteomyelitis. Sepsis Assessment - Evaluation Sepsis screening result: No Definite Risk Hospital Course Summary Disclaimer: The visit summary below is not to be considered part of the above Progress Note.
[2017-05-11] MEDS: CALMOSEPTINE OINTMENT 113gm TUBE TP PRN ×2 (16:22→22:06)
[2017-05-11] MEDS: BACLOFEN 10 MG TABLET PO SCH ×2 (16:22→22:32)
[2017-05-11] MEDS: TAMSULOSIN 0.4 MG CAPSULE PO SCH (22:17)
[2017-05-11] MEDS: LATANOPROST 0.005% EYE DROPS 2.5ml RIGHT EYE SCH (22:33)
[2017-05-12] MEDS: MORPHINE SULFATE 4 MG SYRINGE IVP PRN ×3 (01:45→20:32)
[2017-05-12] MEDS: LANSOPRAZOLE SOLU-TAB 15 MG TABLET PO SCH (05:44)
--- NOTE | 2017-05-12 09:14 | XRay Report ---
Indication: possible osteomyelitis left foot sore and bilateral foot pain PROCEDURE: XR foot BI 2V: Encounter: Initial Comparison: None Findings: Right foot: There is no acute fracture, dislocation or malalignment identified. Severe bony demineralization. No periostitis or osteolysis identified. Left foot: No acute fracture or dislocation. Severe bony demineralization. No periostitis or osteolysis seen. Arterial vascular calcifications. Impression: Right foot: No discrete radiographic evidence of osteomyelitis. Left foot: No discrete radiographic evidence of osteomyelitis. .
[2017-05-12] MEDS: BACLOFEN 10 MG TABLET PO SCH ×3 (09:22→20:41)
[2017-05-12] MEDS: ESCITALOPRAM 10 MG TABLET PO SCH (09:22)
[2017-05-12] MEDS: GABAPENTIN 800 MG TABLET PO SCH ×3 (09:23→20:42)
[2017-05-12] MEDS: VITAMIN B12 1000 MCG PO SCH (09:24)
[2017-05-12] MEDS: CEFTRIAXONE 1 G in NS 100 ML IV SCH (10:52)
--- NOTE | 2017-05-12 11:01 | Progress Note ---
Subjective: States that he is doing little better. Legs are centerless grinder tender. No events overnight. Mentation is back to baseline. Objective Vital signs: Temperature 98.6 F 05/12/17 00:13 Pulse Rate 78 05/12/17 08:06 Respiratory Rate 18 05/12/17 07:26 Blood Pressure 107/59 05/12/17 07:26 Pulse Oximetry 91 05/12/17 07:26 Oxygen Delivery Method Room Air Gen.-awake alert oriented 3, in no acute distress CV-regular rate and rhythm Lungs-clear auscultation bilaterally Abdomen-benign [id number] pitting edema bilaterally Skin-bilateral foot cellulitis is present Height: 6 ft Weight: 98.883 kg Body Mass Index: 29.5 Results - Labs CBC & Chem 7: 05/12/17 04:25 05/11/17 04:30 Microbiology Results: Microbiology 05/11/17 02:50 Foot,Left Gram Stain - Final 05/11/17 02:50 Foot,Left Deep Wound Culture - Preliminary Staphylococcus aureus Gram Negative [place] 05/11/17 02:17 Ankle, Right Gram Stain - Final 05/11/17 02:17 Ankle, Right Deep Wound Culture - Preliminary Staphylococcus aureus Gram Negative Kyaw Assessment and Plan (1) Syncope Current visit: Yes Status: Resolved 05/10/17 23:05 has pacemaker, needs to be interrogated (if not already). Monitor on tele, 05/11/17 01:25 (2) Somnolence Current visit: Yes Status: Resolved 05/10/17 23:04 patient received 50 mg benadryl which appears to have cause expected side effect of sedation and some confusion with waking. Does not appear to be an otherwise pathological event (stroke etc) but if does not wake from this in AM back to usual state, would warrant consideration of further workup. (3) Bilateral lower leg cellulitis Current visit: Yes Status: Acute 05/11/17 01:26 PO clinda ordered may be fine, no fever and WBC not terribly high. Will order IV vanco, ask pharmacy to continue dosing. PO clinda would likely be fine if deemed stable for dc in AM Wound nurse eval and keep referral to wound care clinic (4) Edema of right lower leg due to venous stasis Current visit: Yes Status: Acute will keep oral diuretics on board, likely needs better local/edema care with compression therapy 05/11/17 01:29 (5) Degenerative lumbar spinal stenosis Current visit: Yes Status: Acute (6) Muscle spasticity Current visit: Yes Status: Acute I wonder if cellulitis maybe worsening spasticity in legs. Baclofen or other anti-spasmodic probably indicated for sx. baclofen x 1 tonight (perhaps decide on 5 mg TID and titrate up as tolerated and 1 dose IV ativan tonight. I expect him to have sedating side effects given the reaction to benadryl earlier this peri, but with pain associated and ongoing spasticity issues and discomfort, I think warrants it at this time. 05/11/17 01:29 (7) Sick sinus syndrome Current visit: Yes Status: Resolved not sure if this is precise dx, but will interrogate pacer in AM 05/11/17 01:32 Assessment and Plan: # Bilateral foot cellulitis - failed OP therapy. Continue IV abx. Staph aureus and gram negative. Will add rocephin. Xrays are negative for osteomyelitis. # Syncope - resolved. # Muscle spasms - much improved with baclofen. # Encephalopathy - resolved. Medication induced. Sepsis Assessment - Evaluation Sepsis screening result: No Definite Risk Hospital Course Summary Disclaimer: The visit summary below is not to be considered part of the above Progress Note.
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
[2017-05-12] MEDS: CALMOSEPTINE OINTMENT 113gm TUBE TP PRN ×2 (14:44→17:01)
[2017-05-12] MEDS: APAP/CODEINE 300 MG/30 MG TABLET PO PRN (16:51)
[2017-05-12] MEDS: LATANOPROST 0.005% EYE DROPS 2.5ml RIGHT EYE SCH (21:49)
[2017-05-12] MEDS: TAMSULOSIN 0.4 MG CAPSULE PO SCH (21:49)
[2017-05-12] MEDS: NAPROXEN 220 MG PO PRN (21:49)
[2017-05-12] MEDS ORDERED: KETOROLAC 15 MG/ML INJECTION IVP ONE (22:53)
[2017-05-13] MEDS: CALMOSEPTINE OINTMENT 113gm TUBE TP PRN ×2 (00:37→21:09)
[2017-05-13] MEDS: FUROSEMIDE 40 MG TABLET PO SCH (01:00)
[2017-05-13] MEDS: MORPHINE SULFATE 4 MG SYRINGE IVP PRN ×2 (03:09→20:41)
[2017-05-13] MEDS: LANSOPRAZOLE SOLU-TAB 15 MG TABLET PO SCH (06:11)
[2017-05-13] MEDS: APAP/CODEINE 300 MG/30 MG TABLET PO PRN ×3 (08:17→17:42)
[2017-05-13] MEDS: CEFTRIAXONE 1 G in NS 100 ML IV SCH (09:51)
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
--- NOTE | 2017-05-13 10:11 | Progress Note ---
Subjective: Without new complaints. Had heavy dressings placed on both legs yesterday. Couldn't sleep very well because of this. No events overnight. Objective Vital signs: Temperature 96.5 F L 05/13/17 07:32 Pulse Rate 74 05/13/17 07:32 Respiratory Rate 18 05/13/17 07:32 Blood Pressure 138/67 05/13/17 07:32 Pulse Oximetry 92 05/13/17 07:32 Oxygen Delivery Method Room Air Gen.-awake alert oriented 3, in no acute distress CV-regular rate and rhythm Lungs-clear auscultation bilaterally Abdomen-benign Extremities-heavy dressings on BLE up to the knees Weight: 100.2 kg Results - Labs CBC & Chem 7: 05/12/17 04:25 05/11/17 04:30 Assessment and Plan (1) Syncope Current visit: Yes Status: Resolved (2) Somnolence Current visit: Yes Status: Resolved (3) Bilateral lower leg cellulitis Current visit: Yes Status: Acute (4) Edema of right lower leg due to venous stasis Current visit: Yes Status: Chronic (5) Degenerative lumbar spinal stenosis Current visit: Yes Status: Chronic (6) Muscle spasticity Current visit: Yes Status: Chronic (7) Sick sinus syndrome Current visit: Yes Status: Resolved Assessment and Plan: # Bilateral foot cellulitis - failed OP therapy. Continue IV abx. Staph aureus and Psuedomonas. Will DC rocephin and start cefepime. Change to Levaquin at time of discharge. Continue vancomycin. Xrays are negative for osteomyelitis. # Syncope - resolved. # Muscle spasms - much improved with baclofen. # Encephalopathy - resolved. Medication induced. Sepsis Assessment - Evaluation Sepsis screening result: No Definite Risk Hospital Course Summary Disclaimer: The visit summary below is not to be considered part of the above Progress Note.
[2017-05-13] MEDS: CEFEPIME 1 GM in NS 100 ML IV SCH ×2 (12:11→20:54)
[2017-05-13] MEDS: BACLOFEN 10 MG TABLET PO SCH ×3 (12:16→20:41)
[2017-05-13] MEDS: ESCITALOPRAM 10 MG TABLET PO SCH (12:22)
[2017-05-13] MEDS: GABAPENTIN 800 MG TABLET PO SCH ×3 (12:23→20:41)
[2017-05-13] MEDS: VITAMIN B12 1000 MCG PO SCH (12:45)
[2017-05-13] MEDS: NAPROXEN 220 MG PO PRN (17:05)
[2017-05-13] MEDS ORDERED: KETOROLAC 30 MG/ML INJECTION IVP ONE (18:14)
[2017-05-13] MEDS: LATANOPROST 0.005% EYE DROPS 2.5ml RIGHT EYE SCH (21:09)
[2017-05-13] MEDS: TAMSULOSIN 0.4 MG CAPSULE PO SCH (21:09)
[2017-05-14] MEDS: MORPHINE SULFATE 4 MG SYRINGE IVP PRN (02:15)
[2017-05-14] MEDS ORDERED: HYDROMORPHONE 2 MG/ML INJECTION IVP PRN (03:59)
[2017-05-14] MEDS: LANSOPRAZOLE SOLU-TAB 15 MG TABLET PO SCH (06:03)
[2017-05-14] MEDS: CEFEPIME 1 GM in NS 100 ML IV SCH ×2 (08:30→20:59)
[2017-05-14] MEDS: BACLOFEN 10 MG TABLET PO SCH ×3 (09:36→21:06)
[2017-05-14] MEDS: ESCITALOPRAM 10 MG TABLET PO SCH (09:36)
[2017-05-14] MEDS: GABAPENTIN 800 MG TABLET PO SCH ×3 (09:37→21:07)
[2017-05-14] MEDS: VITAMIN B12 1000 MCG PO SCH (09:38)
[2017-05-14] MEDS: KETOROLAC 30 MG/ML INJECTION IM PRN (11:35)
--- NOTE | 2017-05-14 11:35 | Progress Note ---
Subjective: Lethargic this morning and last night after receiving multiple doses of narcotics. Pain in both legs improved with medications. Per discussion with nursing staff, the Toradol also helped. Case discussed with daughter at bedside. Objective Vital signs: Temperature 97.7 F 05/14/17 07:00 Pulse Rate 78 05/14/17 09:32 Respiratory Rate 14 05/14/17 07:00 Blood Pressure 133/70 05/14/17 09:32 Pulse Oximetry 91 05/14/17 09:32 Oxygen Delivery Method Room Air Gen.-lethargic but arousable, in no acute distress CV-regular rate and rhythm Lungs-clear auscultation bilaterally Abdomen-benign Extremities-no e/c/c Skin-both legs in heavy dressings Weight: 100.5 kg Results - Labs CBC & Chem 7: 05/14/17 03:52 05/14/17 03:52 Assessment and Plan (1) Syncope Current visit: Yes Status: Resolved (2) Somnolence Current visit: Yes Status: Resolved (3) Bilateral lower leg cellulitis Current visit: Yes Status: Acute (4) Edema of right lower leg due to venous stasis Current visit: Yes Status: Chronic (5) Degenerative lumbar spinal stenosis Current visit: Yes Status: Chronic (6) Muscle spasticity Current visit: Yes Status: Chronic (7) Sick sinus syndrome Current visit: Yes Status: Resolved Assessment and Plan: # Bilateral foot cellulitis - failed OP therapy. Continue IV abx. Staph aureus and Psuedomonas. Cefepime/Vanc. Change to Levaquin at time of discharge. Xrays are negative for osteomyelitis. Surgery in charge of dressing changes. # Syncope - resolved. # Muscle spasms - baclofen. # Encephalopathy - resolved. Medication induced. # Asthenia - family requesting rehab evaluation. Sepsis Assessment - Evaluation Sepsis screening result: No Definite Risk Hospital Course Summary Disclaimer: The visit summary below is not to be considered part of the above Progress Note.
[2017-05-14] MEDS: APAP/CODEINE 300 MG/30 MG TABLET PO PRN (12:21)
--- NOTE | 2017-05-14 14:03 | Pharmacy Consult-Antibiotics ---
Pharmacy Consult-Vancomycin - Laboratory Information WBC 9.0 T/MM3 (4.5-11.0) 05/14/17 03:52 BUN 21.0 MG/DL (9-20) H 05/14/17 03:52 Creatinine 1.1 MG/DL (0.8-1.5) 05/14/17 03:52 Procalcitonin 0.05 NG/ML 05/12/17 04:25 Vancomycin Trough 20.55 UG/ML (15-20) H 05/14/17 11:23 - Consult Information VANCOMYCIN CONSULT: Vancomycin Trough = 20.55 mcg/ml. Today's SCr = 1.1 mg/dl. Will continue to give Vancomycin 1,000 mg IV q12hrs. Will continue to monitor and make adjustments accordingly. Thank you.
[2017-05-14] MEDS: CALMOSEPTINE OINTMENT 113gm TUBE TP PRN (18:01)
[2017-05-14] MEDS: TAMSULOSIN 0.4 MG CAPSULE PO SCH (21:07)
[2017-05-14] MEDS: LATANOPROST 0.005% EYE DROPS 2.5ml RIGHT EYE SCH (21:08)
[2017-05-15] MEDS: APAP/CODEINE 300 MG/30 MG TABLET PO PRN ×4 (00:15→22:14)
[2017-05-15] MEDS: FUROSEMIDE 40 MG TABLET PO SCH (00:15)
[2017-05-15] MEDS: LANSOPRAZOLE SOLU-TAB 15 MG TABLET PO SCH (05:58)
[2017-05-15] MEDS: BACLOFEN 10 MG TABLET PO SCH ×3 (08:43→20:40)
[2017-05-15] MEDS: CALMOSEPTINE OINTMENT 113gm TUBE TP PRN (08:44)
[2017-05-15] MEDS: CEFEPIME 1 GM in NS 100 ML IV SCH ×2 (08:44→22:02)
[2017-05-15] MEDS: NS FLUSH BAG 500ml IV PRN (08:45)
[2017-05-15] MEDS: ESCITALOPRAM 10 MG TABLET PO SCH (08:45)
[2017-05-15] MEDS: GABAPENTIN 800 MG TABLET PO SCH ×3 (08:46→20:41)
[2017-05-15] MEDS: VITAMIN B12 1000 MCG PO SCH (08:47)
--- NOTE | 2017-05-15 10:43 | Progress Note ---
Subjective: More awake and alert today. No events overnight. Pain legs much improved. Case discussed with daughter at bedside. Objective Vital signs: Temperature 97.4 F 05/15/17 07:33 Pulse Rate 79 05/15/17 08:00 Respiratory Rate 20 05/15/17 07:33 Blood Pressure 134/74 05/15/17 07:33 Pulse Oximetry 93 05/15/17 07:33 Oxygen Delivery Method Room Air Gen.-aaox3, in no acute distress CV-regular rate and rhythm Lungs-clear auscultation bilaterally Abdomen-benign Extremities-no e/c/c Skin-both legs in heavy dressings Weight: 100.5 kg Results - Labs CBC & Chem 7: 05/14/17 03:52 05/14/17 03:52 Assessment and Plan (1) Syncope Current visit: Yes Status: Resolved 05/10/17 23:05 has pacemaker, needs to be interrogated (if not already). Monitor on tele, 05/11/17 01:25 (2) Somnolence Current visit: Yes Status: Resolved 05/10/17 23:04 patient received 50 mg benadryl which appears to have cause expected side effect of sedation and some confusion with waking. Does not appear to be an otherwise pathological event (stroke etc) but if does not wake from this in AM back to usual state, would warrant consideration of further workup. (3) Bilateral lower leg cellulitis Current visit: Yes Status: Acute 05/11/17 01:26 PO clinda ordered may be fine, no fever and WBC not terribly high. Will order IV vanco, ask pharmacy to continue dosing. PO clinda would likely be fine if deemed stable for dc in AM Wound nurse eval and keep referral to wound care clinic (4) Edema of right lower leg due to venous stasis Current visit: Yes Status: Chronic will keep oral diuretics on board, likely needs better local/edema care with compression therapy 05/11/17 01:29 (5) Degenerative lumbar spinal stenosis Current visit: Yes Status: Chronic (6) Muscle spasticity Current visit: Yes Status: Chronic I wonder if cellulitis maybe worsening spasticity in legs. Baclofen or other anti-spasmodic probably indicated for sx. baclofen x 1 tonight (perhaps decide on 5 mg TID and titrate up as tolerated and 1 dose IV ativan tonight. I expect him to have sedating side effects given the reaction to benadryl earlier this peri, but with pain associated and ongoing spasticity issues and discomfort, I think warrants it at this time. 05/11/17 01:29 (7) Sick sinus syndrome Current visit: Yes Status: Resolved not sure if this is precise dx, but will interrogate pacer in AM 05/11/17 01:32 Assessment and Plan: # Bilateral foot cellulitis - failed OP therapy. Continue IV abx. Staph aureus and Psuedomonas. Cefepime/Vanc. Change to Levaquin at time of discharge. Xrays are negative for osteomyelitis. Surgery in charge of dressing changes. # Syncope - resolved. # Muscle spasms - baclofen. # Encephalopathy - resolved. Medication induced. # Asthenia - family requesting rehab evaluation. Continue physical therapy. Sepsis Assessment - Evaluation Sepsis screening result: No Definite Risk Hospital Course Summary Disclaimer: The visit summary below is not to be considered part of the above Progress Note.
[2017-05-15] MEDS ORDERED: ALPRAZolam 0.25 MG TABLET PO PRN (13:10)
[2017-05-15] MEDS: KETOROLAC 30 MG/ML INJECTION IM PRN ×2 (13:21→20:42)
[2017-05-15] MEDS ORDERED: BISACODYL 10 MG SUPPOSITORY RECTALLY PRN (14:41)
--- NOTE | 2017-05-15 17:12 | General Surgery Progress Note ---
Subjective Patient reports: pain is less (in both feet), no bowel movement - Vital Signs Last Vital Signs Temp 96.2 F L 05/15/17 15:35 Pulse 73 05/15/17 16:00 Resp 20 05/15/17 15:35 BP 146/76 H 05/15/17 15:35 Pulse Ox 96 05/15/17 15:35 - Laboratory Result Diagrams: 05/14/17 03:52 05/14/17 03:52 - Microbiogy Microbiology 05/11/17 02:50 Foot,Left Gram Stain - Final 05/11/17 02:50 Foot,Left Deep Wound Culture - Final Staphylococcus aureus Pseudomonas aeruginosa 05/11/17 02:17 Ankle, Right Gram Stain - Final 05/11/17 02:17 Ankle, Right Deep Wound Culture - Final Staphylococcus aureus Pseudomonas aeruginosa - Normal Exam General: awake, alert Cardiovascular: regular rate Respiratory: equal bilaterally Wound/Stoma/Drain Assessment - Wound Management Left Foot Wound Type: Open Wound (dorsum bilateral feet have shown improvement in amount of slough, but there is still slough and exudate at wound base and edges. General bilateral edema is improving.) Wound Present on Admission?: Yes Wound Dressing Status: Changed Wound Irrigant Solution: Enzymatic Paste Wound Packing Type: Gauze Pads, Gauze Roll (then graduated compression ALESHA wraps ) Primary Dressing: Gauze Pad Secondary Dressing: Gauze Roll/Wrap Dressing Change Date: 05/15/17 Dressing Change Time: 12:45 Dressing Change Patient Tolerance: Tolerated Well Right Foot Dressing Change Date: 05/15/17 Dressing Change Time: 12:45 Buttock Wound Type: Abrasion (with some component of incontinence dermatitis) Wound Present on Admission?: Yes Wound Bed Appearance: [place] Wound Surrounding Tissue Appearance: Bright Red Wound Drainage Description: Sanguineous Wound Drainage Amount: Scant Wound Drainage Odor: No Odor Wound Dressing Status: Open to Air Wound Irrigant Solution: Medicated Ointment Dressing Change Patient Tolerance: Tolerated Well Left Toe - 4th Digit Wound Type: Open Wound (plantar aspect at base of toe, most of the slough has cleaned up with Iodosorb, skin still remains open) Dressing Change Date: 05/15/17 Dressing Change Time: 12:45 Assessment and Plan (1) Bilateral lower leg cellulitis Current Visit: Yes Status: Acute Assessment and plan: Would continue with the Iodosorb enzymatic debridement for another day or two. Will hope to place some EMLA cream on them tomorrow morning and attempt some additional bedside debridement, then change dressing to Aquacel and Mepilex. Hospital Course Summary Disclaimer: The visit summary below is not to be considered part of the above Progress Note. Sepsis Assessment - Evaluation Sepsis screening result: No Definite Risk
[2017-05-15] MEDS ORDERED: Bisacodyl EC TAB 5 MG TABLET PO ONE (17:32)
[2017-05-15] MEDS: TAMSULOSIN 0.4 MG CAPSULE PO SCH ×2 (20:42→22:27)
[2017-05-15] MEDS: LATANOPROST 0.005% EYE DROPS 2.5ml RIGHT EYE SCH ×2 (20:51→22:28)
[2017-05-16] MEDS: KETOROLAC 30 MG/ML INJECTION IM PRN (02:58)
[2017-05-16] MEDS: APAP/CODEINE 300 MG/30 MG TABLET PO PRN ×2 (02:59→09:43)
[2017-05-16] MEDS: LANSOPRAZOLE SOLU-TAB 15 MG TABLET PO SCH (06:34)
[2017-05-16] MEDS ORDERED: LIDOCAINE 2.5%/PRILOCAINE 2.5% CREAM 5gm TOP PRN (07:28)
[2017-05-16] MEDS: BACLOFEN 10 MG TABLET PO SCH ×3 (09:43→21:27)
[2017-05-16] MEDS: CEFEPIME 1 GM in NS 100 ML IV SCH ×2 (09:43→21:27)
[2017-05-16] MEDS: NS FLUSH BAG 500ml IV PRN (09:44)
[2017-05-16] MEDS: ESCITALOPRAM 10 MG TABLET PO SCH (09:45)
[2017-05-16] MEDS: VITAMIN B12 1000 MCG PO SCH (09:46)
[2017-05-16] MEDS: GABAPENTIN 800 MG TABLET PO SCH ×3 (09:46→21:27)
[2017-05-16] MEDS: KETOROLAC 30 MG/ML INJECTION IVP PRN (11:30)
[2017-05-16] MEDS ORDERED: HYDROMORPHONE 2 MG/ML INJECTION IVP ONE (12:31)
--- NOTE | 2017-05-16 13:52 | Progress Note ---
Subjective: Doing much better today. No events overnight. Objective Vital signs: Temperature 96.4 F L 05/16/17 07:53 Pulse Rate 77 05/16/17 08:02 Respiratory Rate 18 05/16/17 08:02 Blood Pressure 157/90 H 05/16/17 08:02 Pulse Oximetry 94 05/16/17 08:02 Oxygen Delivery Method Room Air Gen.-aaox3, in no acute distress CV-regular rate and rhythm Lungs-clear auscultation bilaterally Abdomen-benign Extremities-no e/c/c Skin-wounds on dorsum of feet improving Weight: 101.1 kg Results - Labs CBC & Chem 7: 05/16/17 08:32 05/16/17 08:32 Assessment and Plan (1) Syncope Current visit: Yes Status: Resolved 05/10/17 23:05 has pacemaker, needs to be interrogated (if not already). Monitor on tele, 05/11/17 01:25 (2) Somnolence Current visit: Yes Status: Resolved 05/10/17 23:04 patient received 50 mg benadryl which appears to have cause expected side effect of sedation and some confusion with waking. Does not appear to be an otherwise pathological event (stroke etc) but if does not wake from this in AM back to usual state, would warrant consideration of further workup. (3) Bilateral lower leg cellulitis Current visit: Yes Status: Acute 05/11/17 01:26 PO clinda ordered may be fine, no fever and WBC not terribly high. Will order IV vanco, ask pharmacy to continue dosing. PO clinda would likely be fine if deemed stable for dc in AM Wound nurse eval and keep referral to wound care clinic (4) Edema of right lower leg due to venous stasis Current visit: Yes Status: Chronic will keep oral diuretics on board, likely needs better local/edema care with compression therapy 05/11/17 01:29 (5) Degenerative lumbar spinal stenosis Current visit: Yes Status: Chronic (6) Muscle spasticity Current visit: Yes Status: Chronic I wonder if cellulitis maybe worsening spasticity in legs. Baclofen or other anti-spasmodic probably indicated for sx. baclofen x 1 tonight (perhaps decide on 5 mg TID and titrate up as tolerated and 1 dose IV ativan tonight. I expect him to have sedating side effects given the reaction to benadryl earlier this peri, but with pain associated and ongoing spasticity issues and discomfort, I think warrants it at this time. 05/11/17 01:29 (7) Sick sinus syndrome Current visit: Yes Status: Resolved not sure if this is precise dx, but will interrogate pacer in AM 05/11/17 01:32 Assessment and Plan: # Bilateral foot cellulitis - Improving. Failed OP therapy. Continue IV abx. Staph aureus and Psuedomonas. Cefepime/Vanc. Change to Levaquin at time of discharge. Xrays are negative for osteomyelitis. Continue wound care. # Syncope - resolved. # Muscle spasms - baclofen. # Encephalopathy - resolved. Medication induced. # Asthenia - Continue physical therapy. Dispo - awaiting rehab Sepsis Assessment - Evaluation Sepsis screening result: No Definite Risk Hospital Course Summary Disclaimer: The visit summary below is not to be considered part of the above Progress Note.
--- NOTE | 2017-05-16 14:18 | Progress Note ---
DATE 05/16/2017 FINDINGS Mr. Harris today was without complaints. EMLA cream was placed upon the dorsa of his feet earlier today. VITALS: Please refer to EMR. CHEST: Clear to auscultation bilaterally. HEART: Regular rate and rhythm. Normal S1 and S2 without gallops, murmurs or clicks. EXTREMITIES: Attention was focused to dorsa of his feet. The patient did have bilateral wounds present with EMLA cream overlying them. EMLA cream was removed. ASSESSMENT 81-year-old gentleman with multiple medical comorbidities who has open wounds involving dorsa of feet. PLAN Excisional surgical debridement at bedside. Utilizing a sharp surgical curette, a combination of nonviable bioburden and a small amount of subcutaneous tissue was excised from both wounds. Debridement was carried down to underlying viable tissue until a minimal amount of bleeding began to occur. The patient tolerated the procedure without difficulty. Will change dressing orders now to consist of silver Aquacel and Allevyn foam dressing. I am pleased with the patient's progress at this time. [facility]
[2017-05-16] MEDS: TAMSULOSIN 0.4 MG CAPSULE PO SCH (21:26)
[2017-05-16] MEDS: LATANOPROST 0.005% EYE DROPS 2.5ml RIGHT EYE SCH (21:28)
[2017-05-17] MEDS: FUROSEMIDE 40 MG TABLET PO SCH (01:13)
[2017-05-17] MEDS: LANSOPRAZOLE SOLU-TAB 15 MG TABLET PO SCH (06:05)
[2017-05-17] MEDS: GABAPENTIN 800 MG TABLET PO SCH ×3 (08:17→21:33)
[2017-05-17] MEDS: APAP/CODEINE 300 MG/30 MG TABLET PO PRN ×2 (08:17→21:34)
[2017-05-17] MEDS: ESCITALOPRAM 10 MG TABLET PO SCH (08:18)
[2017-05-17] MEDS: CEFEPIME 1 GM in NS 100 ML IV SCH ×2 (08:18→21:33)
[2017-05-17] MEDS: BACLOFEN 10 MG TABLET PO SCH ×3 (08:18→21:33)
[2017-05-17] MEDS: CALMOSEPTINE OINTMENT 113gm TUBE TP PRN ×3 (08:18→18:48)
[2017-05-17] MEDS: VITAMIN B12 1000 MCG PO SCH (08:20)
--- NOTE | 2017-05-17 09:59 | Progress Note ---
Subjective: Feels much better today. Pain much improved. Had bedside debridement of his feet yesterday. Slept well. Eating well. Objective Vital signs: Temperature 97.4 F 05/17/17 07:12 Pulse Rate 69 05/17/17 07:39 Respiratory Rate 16 05/17/17 07:12 Blood Pressure 124/66 05/17/17 07:12 Pulse Oximetry 94 05/17/17 07:12 Oxygen Delivery Method Room Air Gen.-he is awake alert oriented 3, in no acute distress HEENT-PERRLA EOMI Neck-supple no JVD no bruits Cardiovascular-regular rate and rhythm Lungs-ctab Abdomen-benign Extremities-no edema cyanosis or clubbing Neurological-nonfocal Skin-bilateral lower extremities in dressings. Weight: 100.7 kg Results - Labs CBC & Chem 7: 05/16/17 08:32 05/16/17 08:32 Assessment and Plan Assessment and Plan: # Bilateral foot cellulitis - Improving. Failed OP therapy. Continue IV abx. Staph aureus and Psuedomonas. Cefepime(05/13) and Vanc(05/11). Change to Levaquin at time of discharge. Xrays are negative for osteomyelitis. Continue wound care per surgery. # Syncope - resolved. Non cardiac. # Muscle spasms - baclofen. # Encephalopathy - resolved. Medication induced. # Asthenia - Continue physical therapy. Dispo - awaiting rehab Sepsis Assessment - Evaluation Sepsis screening result: No Definite Risk Hospital Course Summary Disclaimer: The visit summary below is not to be considered part of the above Progress Note.
[2017-05-17] MEDS: TAMSULOSIN 0.4 MG CAPSULE PO SCH (10:06)
[2017-05-17] MEDS: NS FLUSH BAG 500ml IV PRN (12:32)
[2017-05-17] MEDS: LATANOPROST 0.005% EYE DROPS 2.5ml RIGHT EYE SCH (21:37)
[2017-05-18] MEDS: KETOROLAC 30 MG/ML INJECTION IVP PRN ×2 (00:18→23:15)
[2017-05-18] MEDS: CALMOSEPTINE OINTMENT 113gm TUBE TP PRN ×4 (01:30→22:12)
[2017-05-18] MEDS: LANSOPRAZOLE SOLU-TAB 15 MG TABLET PO SCH (05:58)
[2017-05-18] MEDS: APAP/CODEINE 300 MG/30 MG TABLET PO PRN ×2 (05:58→12:32)
[2017-05-18] MEDS: BACLOFEN 10 MG TABLET PO SCH ×3 (09:13→21:18)
[2017-05-18] MEDS: TAMSULOSIN 0.4 MG CAPSULE PO SCH (09:13)
[2017-05-18] MEDS: GABAPENTIN 800 MG TABLET PO SCH ×3 (09:13→21:19)
[2017-05-18] MEDS: ESCITALOPRAM 10 MG TABLET PO SCH (09:13)
[2017-05-18] MEDS: VITAMIN B12 1000 MCG PO SCH (09:14)
[2017-05-18] MEDS: CEFEPIME 1 GM in NS 100 ML IV SCH (09:14)
--- NOTE | 2017-05-18 16:30 | Progress Note ---
Subjective: Pt was seen at 14:30 Pt in bed with daughter at bedside. Reports he is doing well- does not like cardiac diet and is not eating well. No chest pain, no problems voiding, had 3 bms yesterday, none today. He has bilateral didi bandages on his legs- as an outpt had used compression stockings for awhile, then changed therapy based on home health's recommendation. Dr. Rivera is managing his wounds on his feet. Daughter has no questions. Pt has been accepted at [facility] for 3 weeks when discharged. Objective Vital signs: Temperature 97.8 F 05/18/17 15:00 Pulse Rate 76 05/18/17 15:33 Respiratory Rate 16 05/18/17 15:00 Blood Pressure 141/70 H 05/18/17 15:00 Pulse Oximetry 96 05/18/17 15:00 Oxygen Delivery Method Room Air Weight: 221 lb 12.56 oz - Constitutional Present: no acute distress, well nourished, well developed, cooperative - Routine HEENT Exam Head: Present: normocephalic, atraumatic Eye: Present: EOMI, conjunctivae pink ENT: Present: mucous membranes moist - Routine Respiratory Exam Present: decreased breath sounds. Absent: respiratory distress - Routine Cardiovascular Exam Present: RRR - Routine Abdominal Exam Present: soft, normoactive bowel sounds, non distended, non tender. Absent: rebound, guarding, rigid, mass - Routine Extremities Exam Present: pulses intact. Absent: cyanosis, clubbing, edema - Routine Musculoskeletal Exam Musculoskeletal: Present: no clubbing or cyanosis - Routine Skin Exam Present: wounds. Absent: rash Comments: Has didi wraps on both leg wounds Left chest pacemaker site- nontender PICC in left antecubital clean and dry - Routine Neurological Exam Present: alert, oriented X3 - Routine Psychiatric Exam Present: normal affect, normal thought process Results - Labs CBC & Chem 7: 05/16/17 08:32 05/16/17 08:32 Labs: Laboratory Tests 05/12/17 05/12/17 05/14/17 04:25 04:25 03:52 WBC 13.6 H 9.0 Plt Count 222 Neut % (Auto) Lymph % (Auto) Taylor % (Auto) Eos % (Auto) 2.8 8.8 H Sodium Potassium Chloride Carbon Dioxide Anion Gap BUN Creatinine Glucose Calcium Troponin I C-Reactive Protein 63.6 H 07/18/17 07/18/17 08:32 08:32 WBC 8.8 Plt Count 357 D Neut % (Auto) 54.5 Lymph % (Auto) 25.0 Taylor % (Auto) 9.4 H Eos % (Auto) 10.3 H Sodium 143 Potassium 4.2 Chloride 108 H Carbon Dioxide 29 Anion Gap 6 BUN 19.0 Creatinine 0.9 D Glucose 84 Calcium 9.2 Troponin I < 0.012 C-Reactive Protein Assessment and Plan (1) Syncope Current visit: Yes Status: Resolved has pacemaker, was interrogated on 05/11.Monitor on tele, 05/11/17 01:25 05/18/17 17:00 (2) Somnolence Current visit: Yes Status: Resolved (3) Bilateral lower leg cellulitis Current visit: Yes Status: Resolved 05/18/17 17:01 (4) 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 Cultures revealed Staph aureus and Psuedomonas. Cefepime(05/13-today) and Vanc(05/11-today). Xrays are negative for osteomyelitis. Continue wound care per surgery. Subacute/chronic foot wounds # Syncope - resolved. Non cardiac. # Muscle spasms - on baclofen. # Encephalopathy - resolved. Medication induced. # Asthenia - Continue physical therapy. Dispo - Discussed wounds with Dr. Rivera-clinically they are improving. He beleives that the cultures more likely represent bacterial colonization rather than active infection. Plain films as noted above. Will D/C antibiotics, check inflammatory markers in am. Consider transfer to [facility] on Monday with wound care as recommended by Dr. Rivera. Will have fastener technologist discuss his dietary issues. Discussed with family. Sepsis Assessment - Evaluation Sepsis screening result: No Definite Risk Hospital Course Summary Disclaimer: The visit summary below is not to be considered part of the above Progress Note.
[2017-05-18] MEDS ORDERED: LATANOPROST 0.005% EYE DROPS 2.5ml EACH EYE SCH (22:00)
[2017-05-18] MEDS: LATANOPROST 0.005% EYE DROPS 2.5ml RIGHT EYE SCH (23:11)
[2017-05-19 00:13] VITALS: RESP 18; O2SAT 95
[2017-05-19] MEDS: LANSOPRAZOLE SOLU-TAB 15 MG TABLET PO SCH (07:11)
[2017-05-19 07:30] VITALS: BP 120/68; TEMP 97.3
[2017-05-19 08:51] VITALS: BMI 29.2
[2017-05-19] MEDS ORDERED: FUROSEMIDE 40 MG TABLET PO SCH (09:00)
--- NOTE | 2017-05-19 09:08 | Discharge Instructions ---
Discharge Plan - Med Rec/Dispo [facility] Instructions: Syncope (GEN) Prescriptions: Continue Gabapentin [Neurontin] 800 mg PO TID #0 Cyanocobalamin (Vitamin B-12) [Vitamin B-12] 1,000 mg PO DAILY #0 Latanoprost 1 drop BOTH EYES HS #0 bottle Naproxen Sodium [Aleve] 220 mg PO QID PRN PRN Reason: Pain Metoprolol Tartrate [Lopressor] 25 mg PO BIDWM Clindamycin [Cleocin] 300 mg PO Q6HR #40 capsule Lansoprazole [Prevacid] 30 mg PO DAILY #0 Tamsulosin HCl [Flomax] 0.4 mg PO HS #0 Escitalopram Oxalate [Lexapro] 10 mg PO DAILY #0 Cholecalciferol (Vitamin D3) [Vitamin D3] 2,000 unit PO DAILY #0 Potassium Chloride 20 meq PO QOD #0 tab Furosemide [Lasix] 40 mg PO Q2D APAP/Codeine 300/30 (#3) [Tylenol with Codeine #3 (300/30)] 1 tab PO Q4H PRN #15 tab PRN Reason: Pain - Disposition 01 Discharged Home, Self-Care
--- NOTE | 2017-05-19 09:13 | Discharge Instructions ---
Discharge Plan - Med Rec/Dispo Referrals/Follow Up: Jayesh Gasca MD [Family Provider] - 5-6 Weeks [facility] Instructions: Syncope (GEN) Prescriptions: New Senna + Docusate [Senna Plus Tablet] 1 tab PO BID PRN tablet PRN Reason: Constipation Baclofen [Lioresal] 5 mg PO TID tablet Bisacodyl Supp [Dulcolax] 10 mg RECTALLY DAILY PRN supp PRN Reason: Constipation Continue Gabapentin [Neurontin] 800 mg PO TID #0 Cyanocobalamin (Vitamin B-12) [Vitamin B-12] 1,000 mg PO DAILY #0 Latanoprost 1 drop BOTH EYES HS #0 bottle Naproxen Sodium [Aleve] 220 mg PO QID PRN PRN Reason: Pain Metoprolol Tartrate [Lopressor] 25 mg PO BIDWM APAP/Codeine 300/30 (#3) [Tylenol with Codeine #3 (300/30)] 1 tab PO Q4H PRN #15 tab PRN Reason: Pain Lansoprazole [Prevacid] 30 mg PO DAILY #0 Tamsulosin HCl [Flomax] 0.4 mg PO HS #0 Escitalopram Oxalate [Lexapro] 10 mg PO DAILY #0 Cholecalciferol (Vitamin D3) [Vitamin D3] 2,000 unit PO DAILY #0 Potassium Chloride 20 meq PO QOD #0 tab Furosemide [Lasix] 40 mg PO Q2D Discontinued Clindamycin [Cleocin] 300 mg PO Q6HR #40 capsule Discharge Instructions/Outpatient Orders: Final Provider Discharge Instructions Location: Determined By Patient - Disposition [facility] ([facility])
[2017-05-19] MEDS: TAMSULOSIN 0.4 MG CAPSULE PO SCH (09:23)
[2017-05-19 09:57] VITALS: PULSE 75
--- NOTE | 2017-05-19 09:57 | Progress Note ---
Subjective: Doing well this am. Review of nurse's notes from last night, he received IV toradol for pain. This am on further questioning he reports he has chronic leg pain which has improved since starting on baclofen during this hospitalization. He has had regular BM's per nursings charting. No difficulty voiding. He denies SOB or chest pain. Anticipates discharge to [facility] today. Objective Vital signs: Temperature 97.3 F 05/19/17 07:29 Pulse Rate 76 05/19/17 07:29 Respiratory Rate 18 05/19/17 07:29 Blood Pressure 120/68 05/19/17 07:29 Pulse Oximetry 95 05/19/17 07:29 Oxygen Delivery Method Room Air Height: 6 ft Weight: 216 lb 0.848 oz Body Mass Index: 29.2 - Constitutional Present: no acute distress, well nourished, cooperative. Absent: somnolent, obtunded - Routine HEENT Exam Head: Present: normocephalic Eye: Present: conjunctivae pink ENT: Present: mucous membranes moist - Routine Respiratory Exam Present: CTA bilaterally - Routine Cardiovascular Exam Present: irregular rhythm - Routine Abdominal Exam Present: soft, normoactive bowel sounds, non distended, non tender - Routine Extremities Exam Absent: cyanosis, clubbing, edema Comments: his right leg is slightly more swollen then his left- no change from prior exam - Routine Skin Exam Present: intact. Absent: rash - Routine Neurological Exam Present: alert, oriented X3 Results - Labs CBC & Chem 7: 05/19/17 04:41 05/16/17 08:32 Labs: Laboratory Tests 05/12/17 05/19/17 05/19/17 04:25 04:41 04:41 WBC 11.2 H Hgb 10.6 L Hct 33.6 L Plt Count 280 ESR C-Reactive Protein 63.6 H 18.2 H 05/19/17 04:41 WBC Hgb Hct Plt Count ESR Pending C-Reactive Protein Assessment and Plan (1) Syncope Current visit: Yes Status: Resolved has pacemaker, was interrogated on 05/11.Monitor on tele, 05/11/17 01:25 05/18/17 17:00 (2) Somnolence Current visit: Yes Status: Resolved 05/10/17 23:04 patient received 50 mg benadryl which appears to have cause expected side effect of sedation and some confusion with waking. Does not appear to be an otherwise pathological event (stroke etc) but if does not wake from this in AM back to usual state, would warrant consideration of further workup. 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 Cultures revealed Staph aureus and Psuedomonas. Cefepime(05/13-05/18) and Vanc(05/11-05/18). Xrays are negative for osteomyelitis. Continue wound care per surgery. Subacute/chronic foot wounds # Syncope - resolved. Non cardiac. # Muscle spasms - on baclofen with good response # Encephalopathy - resolved. Medication induced ? related to benadryl # Asthenia - Continue physical therapy. Dispo - Discussed wounds with Dr. Rivera this am .clinically they are improving. Inflammatory markers reviewed- CRP improved-ESR is sent out and will be available tomorrow. Will transfer to [facility] with wound care as recommended by Dr. Rivera. Will have bobbin coil winder discuss his dietary issues. Discussed with patient. Sepsis Assessment - Evaluation Sepsis screening result: No Definite Risk Hospital Course Summary Disclaimer: The visit summary below is not to be considered part of the above Progress Note.
--- NOTE | 2017-05-19 09:57 | Discharge Instructions ---
Discharge Plan - Med Rec/Dispo Referrals/Follow Up: Jayesh Gasca MD [Family Provider] - 5-6 Weeks [facility] Instructions: Syncope (GEN) Additional Instructions: Wound clinic appointment May 23 at 1:30 pm. Wound instructions: Dorsum of both feet - Aquacel AG then Mepilex or Allevyn foam. Chagne every 3 days. Graduated compression with ALESHA wraps both legs, rewrap BID. Prescriptions: New Senna + Docusate [Senna Plus Tablet] 1 tab PO BID PRN tablet PRN Reason: Constipation Baclofen [Lioresal] 5 mg PO TID tablet Bisacodyl Supp [Dulcolax] 10 mg RECTALLY DAILY PRN supp PRN Reason: Constipation Continue Gabapentin [Neurontin] 800 mg PO TID #0 Cyanocobalamin (Vitamin B-12) [Vitamin B-12] 1,000 mg PO DAILY #0 Latanoprost 1 drop BOTH EYES HS #0 bottle Naproxen Sodium [Aleve] 220 mg PO QID PRN PRN Reason: Pain Metoprolol Tartrate [Lopressor] 25 mg PO BIDWM APAP/Codeine 300/30 (#3) [Tylenol with Codeine #3 (300/30)] 1 tab PO Q4H PRN #15 tab PRN Reason: Pain Lansoprazole [Prevacid] 30 mg PO DAILY #0 Tamsulosin HCl [Flomax] 0.4 mg PO HS #0 Escitalopram Oxalate [Lexapro] 10 mg PO DAILY #0 Cholecalciferol (Vitamin D3) [Vitamin D3] 2,000 unit PO DAILY #0 Potassium Chloride 20 meq PO QOD #0 tab Furosemide [Lasix] 40 mg PO Q2D Discontinued Clindamycin [Cleocin] 300 mg PO Q6HR #40 capsule - Disposition 01 Discharged Home, Self-Care
[2017-05-19] MEDS: ESCITALOPRAM 10 MG TABLET PO SCH (10:12)
[2017-05-19] MEDS: BACLOFEN 10 MG TABLET PO SCH ×2 (10:12→14:42)
[2017-05-19] MEDS: VITAMIN B12 1000 MCG PO SCH (10:13)
[2017-05-19] MEDS: GABAPENTIN 800 MG TABLET PO SCH ×2 (10:14→14:43)
--- NOTE | 2017-05-19 10:14 | Extended Care Facility Orders ---
Admission Orders Admit to:: Custodial Allergies/Adverse Reactions: Allergies No Known Allergies Allergy (Verified 05/19/17 09:03) Admitting Diagnosis: Syncope,Hypersomnelence Admitting Physician: Zackery Sierra MD Attending Physician: Zackery Sierra MD Anticiapted Length of Stay: 30 days or less Rehab Potential: good Rehab Prognosis: good Diet: 05/18/17 Dinner Regular Diet [DIET] Diet Modifications: Fluid Consistency: REGLIQU Food Consistency: REGCON Wound/Incision Care: Wound clinic appointment May 23 at 1:30 pm. Wound instructions: Dorsum of both feet - Aquacel AG then Mepilex or Allevyn foam. Chagne every 3 days. Graduated compression with ALESHA wraps both legs, rewrap BID. May use Facility Protocol or Standing Orders: Yes May have flu vaccine: Yes Evaluations/Treatment: PT, OT Custodial Certification: I certify that SNF services are required to be given on an Inpatient basis because of the patients need for long-term care on a continuing basis for the condition(s) for which he/she received inpatient hospital services prior to his/her transfer to the SNF. SNF inpatient care is necessary for the following reasons Indication for Custodial: Wound Care/Assessment, Other (pt,ot) - Additional Information In Event of Arrest: Start CPR,call 911,send patient to the ER Referrals: Jayesh Gasca MD [Family Provider] - 5-6 Weeks
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
--- NOTE | 2017-05-19 11:12 | General Surgery Progress Note ---
Subjective Narrative: He is in bed, legs ALESHA wrapped. States he is going to a care facility today. Foot and leg pain have improved since admission. Denies chest pain. - Vital Signs Last Vital Signs Temp 97.3 F 05/19/17 07:29 Pulse 75 05/19/17 08:04 Resp 18 05/19/17 07:29 BP 120/68 05/19/17 07:29 Pulse Ox 95 05/19/17 07:29 - Laboratory Result Diagrams: 05/19/17 04:41 05/16/17 08:32 - Microbiogy Microbiology 05/11/17 02:50 Foot,Left Gram Stain - Final 05/11/17 02:50 Foot,Left Deep Wound Culture - Final Staphylococcus aureus Pseudomonas aeruginosa 05/11/17 02:17 Ankle, Right Gram Stain - Final 05/11/17 02:17 Ankle, Right Deep Wound Culture - Final Staphylococcus aureus Pseudomonas aeruginosa - Normal Exam General: awake, no acute distress Cardiovascular: regular rhythm, regular rate Respiratory: equal bilaterally Abdominal: non-tender Wound/Stoma/Drain Assessment - Wound Management Left Foot Wound Type: Open Wound (bilateral doral foot areas, trauma from wheelchair) Wound Present on Admission?: Yes Wound Bed Appearance: Beefy Red, Slough Wound Surrounding Tissue Appearance: Bright Red Wound Drainage Description: Sanguineous Wound Drainage Amount: Moderate Wound Drainage Odor: Slight Odor Wound Dressing Status: Dry & Intact Wound Irrigant Solution: Saline Irrigant Primary Dressing: Silver Dressing (Aquacel AG) Secondary Dressing: Mepilex Dressing Change Date: 05/16/17 Dressing Change Time: 12:10 Dressing Change Patient Tolerance: Tolerated Well Right Foot Wound Type: Open Wound (wheelchair trama) Wound Present on Admission?: Yes Wound Bed Appearance: Beefy Red, Slough Wound Surrounding Tissue Appearance: Bright Red Wound Drainage Description: Sanguineous Wound Drainage Amount: Small Wound Drainage Odor: Slight Odor Wound Dressing Status: Dry & Intact Wound Irrigant Solution: Saline Irrigant Primary Dressing: Silver Dressing Secondary Dressing: Mepilex Dressing Change Date: 05/16/17 Dressing Change Time: 12:10 Dressing Change Patient Tolerance: Tolerated Well Buttock Wound Type: Abrasion Wound Present on Admission?: Yes Wound Bed Appearance: [place] Wound Surrounding Tissue Appearance: Bright Red Wound Drainage Description: Sanguineous Wound Drainage Amount: Scant Wound Drainage Odor: No Odor Wound Dressing Status: Open to Air Wound Irrigant Solution: Medicated Ointment Dressing Change Patient Tolerance: Tolerated Well Left Toe - 4th Digit Wound Type: Open Wound Wound Present on Admission?: Yes Wound Staging: Stage II Wound Bed Appearance: Slough Wound Surrounding Tissue Appearance: Edematous-pitting Wound Drainage Amount: None Wound Drainage Odor: No Odor Wound Dressing Status: Dry & Intact Wound Irrigant Solution: Saline Irrigant Primary Dressing: Gauze Pad Secondary Dressing: Gauze Roll/Wrap Dressing Change Date: 05/16/17 Dressing Change Time: 12:45 Dressing Change Patient Tolerance: Tolerated Well Assessment and Plan (1) Bilateral lower leg cellulitis Current Visit: Yes Status: Acute Assessment and plan: continue Aquacel AG and Mepilex to both feet, Kerlex then graduated ALESHA wraps. Change dressing every 3 days. ALESHA re-wrap BID. Follow up in wound clinic May 23 Hospital Course Summary Disclaimer: The visit summary below is not to be considered part of the above Progress Note. Sepsis Assessment - Evaluation Sepsis screening result: No Definite Risk
== END 2017-05-19 19:52 | DRG 264 ==
LOC: ED 16:58 → MED 16:58
PROVIDERS: ADMIT Pediatrics; ATTEND Internal Medicine